=== PATIENT | female | born 1940 | race Caucasian/White ===

== ENCOUNTER 2017-08-14 17:46 | Outpatient (CLI) | payer MEDICARE, BC | END 2017-08-14 17:47 | disposition short-term general hospital (02) | LOC: EMS 17:46 | PROVIDERS: ATTEND Surgery | DX: M25.551 Pain in right hip (principal) | CPT/HCPCS: A0425; A0427 ==

== ENCOUNTER 2022-03-27 11:16 | Emergency (ER) | payer MEDICARE, BC ==
[2022-03-27 11:25] VITALS: BP 123/75
[2022-03-27] MEDS ORDERED: lidocaine 1% 20 ML MDV SUBQ ONE (12:23)
[2022-03-27] MEDS ORDERED: TETANUS/DIPHTHERIA/PERTUSSIS 0.5 ML SYRINGE IM ONE (12:23)
[2022-03-27] MEDS ORDERED: KETOROLAC 30 MG/ML VIAL IM STA (12:25)
--- NOTE | 2022-03-27 12:26 | ED Physician Documentation ---
History of Present Illness - Stated complaint Stated Complaint: GLF/HEAD INJ - Chief complaint Chief Complaint: Trauma Hd/Nk - Additonal information Additional information: 81-year-old female presents emergency department for evaluation of right ear laceration head and neck pain. She was walking in her house this morning while it was still dark she tripped on an edge of the table falling to her right side striking her head on the table. She sustained a laceration through the auricular cartilage of the ear. 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 She is uncertain of her last tetanus. She is denying any slurred speech focal weakness in the arms or legs but does have some pain in the right shoulder without deformity. She is not anticoagulated. Review of Systems Constitutional: denies: Fever, Chills Eyes: reports: Reviewed and negative Ears: reports: Other (Right ear laceration) Nose: reports: Reviewed and negative Throat: reports: Reviewed and negative Cardiac: reports: Reviewed and negative Respiratory: reports: Reviewed and negative GI: reports: Reviewed and negative : reports: Reviewed and negative Musculoskeletal: reports: Neck pain. denies: Back pain PD PAST MEDICAL HISTORY - Past Surgical History Past Surgical History: Yes - Present Medications Home Medications: Ambulatory Orders Medication Instructions Recorded Confirmed Baclofen 10 mg PO DAILY 12/25/13 04/01/15 DULoxetine [Cymbalta] 20 mg PO DAILY 12/25/13 04/01/15 Immune Glob,Ivana Caprylate(IgG) 12/25/13 04/01/15 [Gamunex] Indomethacin 75 mg PO DAILY 12/25/13 04/01/15 Levothyroxine [Synthroid] 88 mg PO DAILY 12/25/13 04/01/15 Methotrexate Sodium [Methotrexate] 12/25/13 04/01/15 Omeprazole [PriLOSEC] 40 mg PO DAILY 12/25/13 04/01/15 Potassium Chloride [K-Dur] 20 meq PO DAILY 12/25/13 04/01/15 Pravastatin Sodium 20 mg PO DAILY 12/25/13 04/01/15 bisacodyL [Dulcolax] 5 mg PO DAILY 12/25/13 04/01/15 predniSONE [Deltasone] 5 mg PO DAILY 12/25/13 04/01/15 cephALEXin [Keflex] 500 mg PO Q6H #20 cap 03/27/22 - Allergies Allergies/Adverse Reactions: Allergies Allergy/AdvReac Type Severity Reaction Status Date / Time Penicillins Allergy Rash Verified 03/27/22 11:25 Sulfa (Sulfonamide Allergy Unknown Verified 03/27/22 11:25 Antibiotics) - Social History Does the pt smoke?: No Smoking Status: Never smoker Does the pt drink ETOH?: No - Immunizations Immunizations are current?: Yes PD ED PE EXPANDED - HEENT HEENT: Head injury, PERRL, EOMI, Other (Mild ptosis of the right eyelid normal at baseline and unchanged.). No: Ears normal (2.5 cm laceration through the right mid auricle of the ear. Bilateral TMs normal. Negative for raccoon eyes, negative garcia sign) - Neck Neck: Supple w/out meningeal sx, Soft tissue TTP (Mild tenderness to the base of the cervical spine. Full range of motion in all planes. No crepitus step-off or deformity. Neurovascular intact motor strength equal bilateral arms elbows and wrists) - Cardiac Cardiac: Regular Rate, Radial strong equal, Pedal strong equal - Respiratory Respiratory: Clear to ausultation denilson. No: Distress, Labored - Extremities Extremities: Right shoulder (Mild tenderness with palpation of the proximal humerus but full range of motion of the shoulder in all planes. No obvious deformity. 2+ radial pulse distally.) - Neuro Neuro: Normal gait, Normal finger nose, Normal speech, Other (mild ptosis of right eye normal at bseline. Otherwise cranial nerves II through XII grossly intact) - GCS Eye Opening: Spontaneous Motor: Obeys Commands Verbal: Oriented Total: 15 Results - Vitals Vitals: Vital Signs - 24 hr 03/27/22 11:19 Temperature 36 C L Heart Rate 71 Respiratory 16 Rate Blood Pressure 123/75 O2 Saturation 97 Oxygen O2 Source Room air - Rads (name of study) right shoulder Radiology: Final report received (No acute osseous abnormality) CT head Radiology: Final report received (No acute intracranial abnormality. No intracranial hemorrhage. Soft tissue gas posterior to the right ear and within the earlobe suggesting lacerations) cervical CT Radiology: Final report received (No acute osseous abnormality. Advanced degenerative changes in cervical spine. Possible right upper lobe airspace opacity. Recommend chest x-ray.) cxr Radiology: Final report received (Minimal hazy opacity in the right upper lobe. Suspect atelectasis.) Procedures - Laceration (location) right auricle ear Length in cm: 2.5 Wound type: Linear, Into muscle, Clean, Exposure of cartilage Anesthesia: Lidocaine 1%, Other (Utilizing right auricular block) Wound preparation: Chlorhexadine, Debrided moderately, Wound explored, debridement of wound edges (traumatic laceration/avulsion), Multiple flaps alig astrid Skin layer closure: Nylon, Interrupted, Size #-0 - enter number (6), Sutures - enter # (7) Other: Patient tolerated well, Dressing applied, Tetanus UTD PD MEDICAL DECISION MAKING - ED course Complexity details: reviewed results, re-evaluated patient, considered differential, d/w patient ED course: 81-year-old female presents to the emergency department for evaluation of closed head injury after tripping on a table leg at home and striking her head on the table. She did have a through and through laceration of the mid auricle on her right ear. This resembled a paper cut. Using navicular block I was able to adequately align the edges and close this wound with 7 sutures. Due to the risk of development of cauliflower ear a generous amount of bacitracin was applied to the wound as well as a very gentle compression bandage that she is advised to remove in 24 hours. I am going to prescribe a 5-day course of cephalexin to help prevent infection empirically as cartilage structures are at higher risk of infection. CT of the head and neck did not show any acute intracranial findings though there is advanced degenerative changes. Radiologist made note of an possible airspace opacity in the right upper lung and then recommended an x-ray of the chest which was completed. The reading was for minimal hazy opacity in the right upper lobe. Suspect for Atelectasis. Given that patient has no recent cough or fevers will defer antibiotics for treatment of unlikely pneumonia. Patient is advised to have the sutures removed in 10 days time. Emergent return precautions were discussed for concerns of worsening symptoms Departure - Departure Disposition: 01 Home, Self Care Clinical Impression: Fall from ground level Laceration of right ear, external Qualifiers: Encounter type: initial encounter Qualified Code(s): S01.311A - Laceration without foreign body of right ear, initial encounter Contusion of right shoulder Qualifiers: Encounter type: initial encounter Qualified Code(s): S40.011A - Contusion of right shoulder, initial encounter Condition: Stable Record reviewed to determine appropriate education?: Yes Prescriptions: cephALEXin [Keflex] 500 mg PO Q6H #20 cap Comments: Char townsend are seen today in the emergency department because you had a ground- level fall at home today where you struck your right shoulder and ear on a table. The x-ray of your shoulder does not show any broken bones. We did do a CT of your head and neck. With the exceptions of arthritis within your neck there was nothing to suggest broken bones or bruising or bleeding within the brain. The CT of the neck however did suggest a possible opacity suggesting pneumonia in the lungs therefore we did an x-ray of the lungs. This mild opacity is seen but is likely atelectasis or incomplete inflation of the air sacs. I recommended that you take big full deep breaths and cough forcefully. If at any point you find that you develop a worrisome cough or have fevers you should return to the ER. You did develop a through and through laceration of the cartilage on your right ear. This was closed with 7 sutures. Ear lacerations can develop infection therefore I have sent a prescription for Keflex to the [facility] in [place]. Fill that this afternoon and begin taking as directed. Tomorrow morning you may remove the bandage from your head. You can gently shower and apply a thin layer of either bacitracin or Polytrim to the laceration. The sutures should be removed in 10 days. This can be done at any urgent care, primary care office or on a return visit to the ER. If at any point you find that you are developing fevers, having mid milky drainage significant redness more than you would expect of the ear or have any concerns of infection please return immediately to the ER.
--- NOTE | 2022-03-27 13:02 | CT Report ---
PROCEDURE: CERVICAL SPINE WO INDICATIONS: glf; neck pain TECHNIQUE: Noncontrast 3 mm thick sections acquired from the skull base to the T4 level. Sagittal and coronal r eformats were then constructed. For radiation dose reduction, the following was used: automated exp osure control, adjustment of mA and/or kV according to patient size. COMPARISON: None. FINDINGS: Image quality: Excellent. Bones: No fractures or dislocations. Mild kyphosis. Extensive degenerative change in the cervical sp ine. There is 0.4 cm anterolisthesis of C3 on C4. Visualized superior ribs are intact. Soft tissues: Prevertebral soft tissues are normal in thickness. No paravertebral hematomas. No ap ical pneumothoraces. Possible airspace opacity at the right midlung field partially visualized. Altho ugh this appears more bandlike on the plug drill operator image. IMPRESSION: No acute osseous abnormality. Advanced degenerative change in the cervical spine. Possible right upper lobe airspace opacity. Recommend chest x-ray. Reviewed by: Khadar Andujar MD on 03/27/2022 12:00 PM DL Approved by: Khadar Andujar MD on 03/27/2022 12:00 PM DL Station ID: [id number]
--- NOTE | 2022-03-27 13:05 | CT Report ---
PROCEDURE: HEAD WO INDICATIONS: Ground-level fall, right ear trauma TECHNIQUE: Noncontrast 4.5 mm thick angled axial sections acquired from the foramen magnum to the vertex. For r adiation dose reduction, the following was used: automated exposure control, adjustment of mA and/or kV according to patient size. COMPARISON: None. FINDINGS: Image quality: Excellent. CSF spaces: Basal cisterns are patent. No extra-axial fluid collections. Ventricles are normal in size and shape. Brain: No midline shift. No intracranial masses or hemorrhage. No area of hypodensity in a vascular distribution to suggest acute infarction. There is periventricular hypodensity consistent with chron ic microvascular ischemic disease. Age-related parenchymal loss. Skull and face: Calvarium and visualized facial bones are intact, without suspicious lesions. Gas at the right year and posterior to the air within the soft tissues. No large hematoma. Sinuses: Visualized sinuses and mastoids are clear. IMPRESSION: No acute intracranial abnormality. No intracranial hemorrhage. Soft tissue gas posterior to the right ear and within the ear lobe suggesting lacerations. Reviewed by: Khadar Andujar MD on 03/27/2022 12:03 PM DL Approved by: Khadar Andujar MD on 03/27/2022 12:03 PM DL Station ID: [id number]
--- NOTE | 2022-03-27 13:08 | XRAY Report ---
PROCEDURE: Shoulder 3 View RT INDICATIONS: pain after fall TECHNIQUE: 3 views of the shoulder were acquired. COMPARISON: None. FINDINGS: Bones: No fractures or dislocations. Degenerative hypertrophy at the AC joint. Degenerative change a t the glenohumeral joint. Moderate degenerative change overall. No suspicious bony lesions. Visuali zed ribs appear intact. Soft tissues: No suspicious soft tissue calcifications. IMPRESSION: No acute osseous abnormality. Reviewed by: Khadar Andujar MD on 03/27/2022 12:07 PM DL Approved by: Khadar Andujar MD on 03/27/2022 12:07 PM DL Station ID: [id number]
--- NOTE | 2022-03-27 14:05 | XRAY Report ---
PROCEDURE: Chest 1 View X-Ray INDICATIONS: ? RUL opacity seen on CT TECHNIQUE: One view of the chest was acquired. COMPARISON: Lung apices on CT cervical spine earlier today. FINDINGS: Surgical changes and devices: Thoracolumbar spine hardware. Lungs and pleura: No pleural effusions or pneumothorax. Minimal hazy opacity in the right midlung fi eld. No consolidative opacity. Mediastinum: Mediastinal contours appear normal. Heart size is within normal limits. Bones and chest wall: No suspicious bony lesions. Overlying soft tissues appear unremarkable. IMPRESSION: Minimal hazy opacity in the right upper lobe. Suspect atelectasis. Reviewed by: Khadar Andujar MD on 03/27/2022 1:04 PM DL Approved by: Khadar Andujar MD on 03/27/2022 1:04 PM DL Station ID: [id number]
== END 2022-03-27 14:24 | disposition home or self-care (01) ==
LOC: ED 11:16
DX: S01.311A Laceration without foreign body of right ear, initial encounter (principal); S40.011A Contusion of right shoulder, initial encounter; W01.190A Fall on same level from slipping, tripping and stumbling with subsequent striking against furniture, initial encounter; Y93.01 Activity, walking, marching and hiking; Y92.009 Unspecified place in unspecified non-institutional (private) residence as the place of occurrence of the external cause; R91.8 Other nonspecific abnormal finding of lung field
CPT/HCPCS: 12051; 90471; 99283

== ENCOUNTER 2022-04-07 09:00 | Emergency (ER) | payer MEDICARE, BC ==
[2022-04-07 09:32] VITALS: BP 135/68
--- NOTE | 2022-04-07 09:59 | ED Physician Documentation ---
PD HPI WOUND RECHECK - Stated complaint Stated Complaint: STITCHES REMOVAL - Chief complaint Chief Complaint: Laceration - Histroy obtained from History obtained from: Patient - Additional information Additional information: Patient is an 81-year-old female presenting for evaluation of suture removal. Patient was seen on March 27 after a injury to her right ear and had 7 stitches placed. Patient denies any concerns for infection. Review of Systems Constitutional: denies: Fever Cardiac: denies: Chest pain / pressure Respiratory: denies: Dyspnea GI: denies: Abdominal Pain Skin: reports: Laceration (s) Neurologic: denies: Headache PD PAST MEDICAL HISTORY - Past Surgical History Past Surgical History: Yes - Present Medications Home Medications: Ambulatory Orders Medication Instructions Recorded Confirmed Baclofen 10 mg PO DAILY 12/25/13 04/01/15 DULoxetine [Cymbalta] 20 mg PO DAILY 12/25/13 04/01/15 Immune Glob,Ivana Caprylate(IgG) 12/25/13 04/01/15 [Gamunex] Indomethacin 75 mg PO DAILY 12/25/13 04/01/15 Levothyroxine [Synthroid] 88 mg PO DAILY 12/25/13 04/01/15 Methotrexate Sodium [Methotrexate] 12/25/13 04/01/15 Omeprazole [PriLOSEC] 40 mg PO DAILY 12/25/13 04/01/15 Potassium Chloride [K-Dur] 20 meq PO DAILY 12/25/13 04/01/15 Pravastatin Sodium 20 mg PO DAILY 12/25/13 04/01/15 bisacodyL [Dulcolax] 5 mg PO DAILY 12/25/13 04/01/15 predniSONE [Deltasone] 5 mg PO DAILY 12/25/13 04/01/15 cephALEXin [Keflex] 500 mg PO Q6H #20 cap 03/27/22 - Allergies Allergies/Adverse Reactions: Allergies Allergy/AdvReac Type Severity Reaction Status Date / Time Penicillins Allergy Rash Verified 04/07/22 09:32 Sulfa (Sulfonamide Allergy Unknown Verified 04/07/22 09:32 Antibiotics) - Social History Does the pt smoke?: No Smoking Status: Never smoker Does the pt drink ETOH?: No - Immunizations Immunizations are current?: Yes PD ED PE NORMAL - General General: Alert and oriented X 3, No acute distress, Well developed/nourished - HEENT HEENT: Other (Well-healing laceration to right ear with no evidence of dehiscence or infection) - Respiratory Respiratory: No respiratory distress - Derm Derm: Warm and dry Results - Vitals Vitals: Vital Signs - 24 hr 04/07/22 09:30 Temperature 36.7 C Heart Rate 80 Respiratory 16 Rate Blood Pressure 135/68 H O2 Saturation 99 Oxygen O2 Source Room air PD MEDICAL DECISION MAKING - ED course ED course: Patient presenting for suture removal for wound that was repaired on March 27 with 7 stitches to right ear. Wound is well-appearing with no signs of dehiscence or infection. 7 stitches were removed in their entirety. Patient was counseled on continued wound care. Departure - Departure Disposition: 01 Home, Self Care Clinical Impression: Visit for suture removal Condition: Stable Instructions: ED Wound Check Sutr Remove No Infec Comments: Your Stitches were all removed and your wound appears to be healing well. You can use bacitracin On the wound as it heals Or just make sure to keep it clean and dry. If you have any concerns for infection please return to the ER. Discharge Date/Time: 04/07/22 10:09
== END 2022-04-07 10:09 | disposition home or self-care (01) ==
LOC: ED 09:00
DX: S01.311D Laceration without foreign body of right ear, subsequent encounter (principal); X58.XXXD Exposure to other specified factors, subsequent encounter
CPT/HCPCS: 99281

== ENCOUNTER 2023-11-29 10:47 | Emergency (ER) | payer BC, MEDICARE ==
--- NOTE | 2023-11-29 12:35 | XRAY Report ---
PROCEDURE: Shoulder 2+V RT INDICATIONS: R shoulder pain TECHNIQUE: 3 views of the shoulder were acquired. COMPARISON: 03/27/2022. FINDINGS: Bones: No fractures or dislocations. No suspicious bony lesions. Significant interval progression o f degenerative change, with severe glenohumeral joint degenerative arthritis. There is large osteophy te and severe joint space loss. Visualized ribs appear intact. Soft tissues: No suspicious soft tissue calcifications. The visualized lungs are within normal limi ts. 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 Reviewed by: Cheng Chowdhury MD on 11/29/2023 12:33 PM PDT Approved by: Cheng Chowdhury MD on 11/29/2023 12:33 PM PDT Station ID: [id number]
--- NOTE | 2023-11-29 12:48 | ED Physician Documentation ---
History of Present Illness - Stated complaint Stated Complaint: RT ARM PX RT HAND NUMBNESS - Chief complaint Chief Complaint: Ext Problem - History obtained from History obtained from: Patient - History of Present Illness Timing: Yesterday Pain level max: 8 Pain level now: 8 - Additonal information Additional information: 82-year-old female presents to the emergency department complaining of right wrist pain. She states that her right shoulder has been hurting as well, but this is chronic. She states over the last 2 days she has noted swelling and pain to the right hand and wrist. 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 She states that she does not recall any spe cific injury but noted the hand is more swollen than usual. No fevers. No chills. Worse with movement, better with rest. She states that she was unable to courtroom deputy the steering wheel today so a friend drove her to the emergency department. She states that she is on medications for arthritis at home but does not know what they are. She states that she is on prednisone. The pain is worse with movement, better with rest. Review of Systems Constitutional: denies: Fever, Chills Respiratory: denies: Cough GI: denies: Nausea, Vomiting, Diarrhea Skin: denies: Rash Musculoskeletal: denies: Neck pain, Back pain Neurologic: denies: Headache PD PAST MEDICAL HISTORY - Past Medical History Past Medical History: Yes Other Past Medical History: Stiff person syndrome - Past Surgical History Past Surgical History: Yes - Present Medications Home Medications: Ambulatory Orders Medication Instructions Recorded Confirmed Baclofen 10 mg PO DAILY 12/25/13 04/01/15 DULoxetine [Cymbalta] 20 mg PO DAILY 12/25/13 04/01/15 Immune Glob,Ivana Caprylate(IgG) 12/25/13 04/01/15 [Gamunex] Indomethacin 75 mg PO DAILY 12/25/13 04/01/15 Levothyroxine [Synthroid] 88 mg PO DAILY 12/25/13 04/01/15 Methotrexate Sodium [Methotrexate] 12/25/13 04/01/15 Omeprazole [PriLOSEC] 40 mg PO DAILY 12/25/13 04/01/15 Potassium Chloride [K-Dur] 20 meq PO DAILY 12/25/13 04/01/15 Pravastatin Sodium 20 mg PO DAILY 12/25/13 04/01/15 bisacodyL [Dulcolax] 5 mg PO DAILY 12/25/13 04/01/15 predniSONE [Deltasone] 5 mg PO DAILY 12/25/13 04/01/15 cephALEXin [Keflex] 500 mg PO Q6H #20 cap 03/27/22 HYDROcod/ACETAM 5/325 [[place] 5/325] 1 ea PO Q6H PRN #14 tablet 11/29/23 predniSONE [Deltasone] 20 mg PO DAILY #5 tablet 11/29/23 - Allergies Allergies/Adverse Reactions: Allergies Allergy/AdvReac Type Severity Reaction Status Date / Time Penicillins Allergy Rash Verified 11/29/23 10:51 Sulfa (Sulfonamide Allergy Unknown Verified 11/29/23 10:51 Antibiotics) - Social History Does the pt smoke?: No Smoking Status: Never smoker Does the pt drink ETOH?: No Does the pt have substance abuse?: No - Immunizations Immunizations are current?: Yes PD ED PE NORMAL - Vitals Vital signs reviewed: Yes - General General: Alert and oriented X 3, No acute distress - HEENT HEENT: Moist mucous membranes - Neck Neck: Supple, no meningeal sign - Cardiac Cardiac: RRR, Strong equal pulses - Respiratory Respiratory: No respiratory distress, Clear bilaterally - Derm Derm: Warm and dry - Extremities Extremities: Other - Neuro Neuro: Alert and oriented X 3 - Free text exam Free text exam: Limited range of motion of the right shoulder secondary to pain. No warmth or swelling. There is warmth and swelling to the right wrist and to the dorsum of the right hand. No palmar tenderness. No streaking. No erythema. Rings were removed from the right hand. Limited range of motion of the right wrist secondary to pain, full range of motion of the fingers. Neurovascular intact. Results - Vitals Vitals: Vital Signs - 24 hr 11/29/23 11/29/23 10:51 14:04 Temperature 36.7 C 36.7 C Heart Rate 66 97 Respiratory 16 18 Rate Blood Pressure 155/63 H 124/81 H O2 Saturation 99 98 Oxygen O2 Source Room air - Rads (name of study) R shoulder xray Relevant Findings:: Final report received, See rad report R wrist xray Relevant Findings:: Final report received, See rad report PD Medical Decision Making - ED course Complexity details: reviewed results, re-evaluated patient, considered differential, d/w patient ED course: Patient with what appears to be severe osteoarthritis of the right shoulder and right hand/wrist. Symptoms are consistent with an osteoarthritis flare. Placed in a Velcro splint for comfort of the right wrist. She feels better. Will place on pain medication and a short course of steroids for home. She is usually on 5 mg of prednisone daily, we will increase this to 20 mg daily. No evidence of infection. No evidence of cellulitis. No evidence of joint infection. No history of gout. No trauma. No fractures or dislocations. Neurovascular intact. Patient counseled regarding signs and symptoms for which I believe and urgent re-evaluation would be necessary. Patient with good understanding of and agreement to plan and is comfortable going home at this time This document was made in part using voice recognition software. While efforts are made to proofread this document, sound alike and grammatical errors may occur. Departure - Departure Disposition: 01 Home, Self Care Clinical Impression: Osteoarthritis Qualifiers: Osteoarthritis location: unspecified site Osteoarthritis type: unspecified Qualified Code(s): M19.90 - Unspecified osteoarthritis, unspecified site Condition: Good Instructions: ED Degenerative Joint Disease Follow-Up: Khadar Cortez MD [Primary Care Provider] - Within 1 week Prescriptions: predniSONE [Deltasone] 20 mg PO DAILY #5 tablet HYDROcod/ACETAM 5/325 [[place] 5/325] 1 ea PO Q6H PRN #14 tablet PRN Reason: Pain Comments: You appear to be having an arthritis flare. We have prescribed pain medication for you for the next few days. The steroid should help to decrease the inflammation. Wear the splint as needed for comfort, this should help decrease the swelling. You can use ice as well. Please follow-up with your doctor for further care and return if you worsen. There is no acute bony abnormality on y our x-rays. Your prescription was sent to the [facility] pharmacy. I am prescribing a short course of narcotic pain medication for you. These are potentially dangerous and addictive medications that should be used carefully. These medications may constipate you. Take an [id number] stool softener (docusate) twice daily with plenty of water while taking these medications. If you go 24 hours without a bowel movement, take [id number] miralax, per package instructions. Do not drink or drive while taking these medications. If you received narcotic or sedating medications while in the emergency department, do not drive for 24 hours. Store this medication in a safe, secure place and out of reach of children. It is a violation of federal law to give or sell this medication to another person or to use in a manner other than prescribed. The ED will not refill narcotic prescriptions, including prescriptions lost or stolen. To dispose of unwanted medications: 1. [facility] [address] in [place] has a medication drop box. They accept prescription medications (in pill form) Monday through Monday 9:00 a.m. to 5:00 p.m. 2. The [facility] accepts prescription medications (in pill form only) for disposal year round. Call for more information. 3. Contact the [facility] for the next [facility] sponsored prescription drug collection event. , [phone], or [phone]; Forms: PCP List Discharge Date/Time: 11/29/23 14:04
[2023-11-29] MEDS: predniSONE 20 MG TABLET PO STA (12:55)
[2023-11-29] MEDS: HYDROcod/ACETAM 5/325 MG TABLET PO STA (12:55)
--- NOTE | 2023-11-29 12:55 | XRAY Report ---
PROCEDURE: Wrist 3+V RT INDICATIONS: R wrist pain/swelling TECHNIQUE: 4 views of the wrist were acquired. COMPARISON: None. FINDINGS: Bones: No fractures or dislocations. Advanced degenerative arthritis of the base of the thumb. There is some radiocarpal joint degenerative arthritis as well. There is advanced thumb IP joint degenerat inga arthritis. No suspicious bony lesions. Soft tissues: No suspicious soft tissue calcifications or masses. IMPRESSION: Multifocal degenerative arthritis, advanced at the base of the thumb and the first IP joint. There is also radiocarpal joint degenerative arthritis. No acute bony abnormality. Reviewed by: Cheng Chowdhury MD on 11/29/2023 12:54 PM PDT Approved by: Cheng Chowdhury MD on 11/29/2023 12:54 PM PDT Station ID: [id number]
[2023-11-29 14:07] VITALS: BP 124/81; O2SAT 98
== END 2023-11-29 14:04 | disposition home or self-care (01) ==
LOC: ED 10:47
DX: M19.011 Primary osteoarthritis, right shoulder (principal); M19.031 Primary osteoarthritis, right wrist; M19.041 Primary osteoarthritis, right hand
CPT/HCPCS: 73030; 73110; 99283; A9270; J7512

== ENCOUNTER 2023-12-19 08:00 | Outpatient (CLI) | payer MEDICARE ==
--- NOTE | 2023-12-20 22:06 | XRAY Report ---
PROCEDURE: Hand 3+V RT INDICATIONS: JOINT PAIN RIGHT HAND TECHNIQUE: 3 views of the hand(s) acquired. COMPARISON: X-ray wrist 11/29/2023 FINDINGS: Bones: No fractures or dislocations. No suspicious bony lesions. Unchanged appearance of moderate to severe arthritic changes including IP and first CMC degenerative narrowing. Periarticular osteoph ytes and subchondral sclerosis are present. Areas of subchondral lucency are present. Soft tissues: No suspicious soft tissue calcifications or masses. IMPRESSION: Prominent arthritic changes as above. Subchondral lucencies may represent cysts or an appropriate cli nical laboratory circumstances, erosions. Reviewed by: Cesia Rocha MD on 12/20/2023 10:05 PM PDT Approved by: Cesia Rocha MD on 12/20/2023 10:05 PM PDT Station ID: [id number]
--- NOTE | 2023-12-20 22:07 | XRAY Report ---
PROCEDURE: Wrist 3+V RT INDICATIONS: PAIN IN RIGHT WRIST TECHNIQUE: 3 views of the wrist were acquired. COMPARISON: X-ray hand 12/19/2023, x-ray wrist 11/29/2023 FINDINGS: Bones: No fractures or dislocations. No suspicious bony lesions. Prominent first CMC degenerative narrowing with subchondral sclerosis and periarticular osteophytes. Chondrocalcinosis is present. Soft tissues: No suspicious soft tissue calcifications or masses. IMPRESSION: No visualized acute fracture or dislocation. However, occult injury cannot be excluded. Recommend shena rt interval imaging follow-up in 7-10 days as clinically indicated for additional evaluation. Stable appearance of arthritic change. Reviewed by: Cesia Rocha MD on 12/20/2023 10:06 PM PDT Approved by: Cesia Rocha MD on 12/20/2023 10:06 PM PDT Station ID: [id number]
== END 2023-12-19 23:59 | disposition home or self-care (01) ==
LOC: DI.S 08:00
PROVIDERS: ATTEND Registered Nurse
DX: M25.531 Pain in right wrist (principal); M19.041 Primary osteoarthritis, right hand; M18.11 Unilateral primary osteoarthritis of first carpometacarpal joint, right hand

== ENCOUNTER 2023-12-25 17:42 | Outpatient (CLI) | payer MEDICARE ==
--- NOTE | 2023-12-25 21:07 | XRAY Report ---
PROCEDURE: Wrist 3+V RT INDICATIONS: DISPLACED FRACTURE OF TRIQUETRUM BONE, RT WRIST TECHNIQUE: 3 views of the wrist were acquired. COMPARISON: X-ray wrist/hand 12/19/2023.. FINDINGS: Bones: Calcifications are noted posterior to the triquetral.. No suspicious bony lesions. Promine nt first CMC arthritic change. Chondrocalcinosis is present. Soft tissues: No suspicious soft tissue calcifications or masses. IMPRESSION: Calcifications posterior to the triquetral bone. This could represent avulsion fractures versus promi nence of chondrocalcinosis. Reviewed by: Cesia Rocha MD on 12/25/2023 9:06 PM PDT Approved by: Cesia Rocha MD on 12/25/2023 9:06 PM PDT Station ID: [id number]
== END 2023-12-25 17:43 | disposition home or self-care (01) ==
LOC: DI.S 17:42
PROVIDERS: ATTEND Orthopaedic Surgery
DX: S62.111A Displaced fracture of triquetrum [cuneiform] bone, right wrist, initial encounter for closed fracture (principal)

== ENCOUNTER 2024-01-23 17:13 | Outpatient (CLI) | payer MEDICARE ==
--- NOTE | 2024-01-24 09:18 | XRAY Report ---
PROCEDURE: Wrist 3+V RT INDICATIONS: FRACTURE OF RT RADIUS TECHNIQUE: 3 views of the wrist were acquired. COMPARISON: 12/25/2023, 12/19/2023, 11/29/2023. FINDINGS: Bones: Again noted are ill-defined calcifications involving dorsal aspect of carpal bones, which may represent age-indeterminate and injury involving dorsal aspect of triquetrum. No definite distal rad ial fracture is seen. Osteoarthritic changes are noted throughout wrist joints unchanged from prior s tudy and is most notably at first CMC joint. Widening of scapholunate interval concerning for rupture d scapholunate ligament. No suspicious bony lesions. Soft tissues: Chondrocalcinosis in the region of radiocarpal and ulnar carpal joint is seen. IMPRESSION: No definite displaced distal radial fracture is seen. Suggestion of age-indeterminate fracture involv ing dorsal aspect of triquetrum with amorphous calcifications less well seen on the current study due to overlying cast placement. Osteoarthritis throughout wrist joints. Widening of scapholunate interval. Reviewed by: Rylan Lopez MD on 01/24/2024 9:17 AM PDT Approved by: Rylan Lopez MD on 01/24/2024 9:17 AM PDT Station ID: [id number]
== END 2024-01-23 17:14 | disposition home or self-care (01) ==
LOC: DI.S 17:13
PROVIDERS: ATTEND Orthopaedic Surgery
DX: S52.531A Colles' fracture of right radius, initial encounter for closed fracture (principal); M19.031 Primary osteoarthritis, right wrist

== ENCOUNTER 2024-08-12 18:13 | Observation (INO) ==
[2024-08-12 19:02] LABS: BASOPHILS # (AUTO) 0.1 10^3/uL (0.0-0.1); BASOPHILS % (AUTO) 0.7 %; EOSINOPHILS % (AUTO) 0.6 %; HCT - HEMATOCRIT 39.1 % (37.0-47.0); HGB - HEMOGLOBIN 12.3 g/dL (12.0-16.0); LYMPHOCYTES # (AUTO) 0.8 10^3/uL (1.5-3.5); LYMPHOCYTES % (AUTO) 11.8 %; MEAN CORPUSCULAR HEMOGLOBIN 27.3 pg (27.0-31.0); MEAN CORPUSCULAR HGB CONC 31.5 g/dL (32.0-36.0); MEAN CORPUSCULAR VOLUME 86.7 fL (81.0-99.0); MEAN PLATELET VOLUME 10.4 fL (7.9-10.8); MONOCYTES # (AUTO) 0.5 10^3/uL (0.0-1.0); NEUTROPHILS # (AUTO) 5.6 10^3/uL (1.5-6.6); NEUTROPHILS % (AUTO) 79.5 %; PLT - PLATELET COUNT 202 10^3/uL (130-450); RED BLOOD COUNT 4.51 10^6/uL (4.20-5.40); RED CELL DISTRIBUTION WIDTH 14.6 % (12.0-15.0)
[2024-08-12 19:08] LABS: INR 1.1 (0.8-1.2); PT - PROTHROMBIN TIME 11.9 secs (9.9-12.6)
[2024-08-12 19:32] LABS: ALBUMIN 3.8 g/dL (3.2-5.5); ALBUMIN/GLOBULIN RATIO 1.2 (1.0-2.2); ALKALINE PHOSPHATASE 40 IU/L (42-121); ALT ALANINE AMINOTRANSFERASE 15 IU/L (10-60); AST ASPARTATE AMINOTRANSFERASE 25 IU/L (10-42); BILIRUBIN,TOTAL 0.4 mg/dL (0.2-1.0); BUN - BLOOD UREA NITROGEN 21 mg/dL (6-20); CALCIUM 9.4 mg/dL (8.5-10.3); CARBON DIOXIDE - CO2 26 mmol/L (21-32); CHLORIDE 108 mmol/L (101-111); CREATININE 0.9 mg/dL (0.6-1.3); ETOH - ETHANOL < 10.0 mg/dL; GFR - MDRD 60 (>89); GLUCOSE 102 mg/dL (74-104); MAGNESIUM 1.8 mg/dL (1.7-2.3); POTASSIUM 3.9 mmol/L (3.5-4.5); SODIUM 140 mmol/L (135-145); TOTAL PROTEIN 6.9 g/dL (6.4-8.9)
--- NOTE | 2024-08-12 19:33 | CT Report ---
PROCEDURE: CT Head WO INDICATIONS: head injury, ams TECHNIQUE: Noncontrast 4.5 mm thick angled axial sections acquired from the foramen magnum to the vertex. For r adiation dose reduction, the following was used: automated exposure control, adjustment of mA and/or kV according to patient size. COMPARISON: 03/27/2022. FINDINGS: Image quality: Excellent. CSF spaces: Basal cisterns are patent. No extra-axial fluid collections. Ventricles are normal in size and shape. Brain: No midline shift. No intracranial masses or hemorrhage. Flores-white matter interface is norm al. Age-related global volume loss and chronic microvascular ischemic changes. Intracranial atherosc lerotic vascular calcifications. Skull and face: Calvarium and visualized facial bones are intact, without suspicious lesions. Sinuses: Visualized sinuses and mastoids are clear. IMPRESSION: No acute intracranial pathology. Reviewed by: Tony Diaz MD on 08/12/2024 7:32 PM PDT Approved by: Tony Diaz MD on 08/12/2024 7:32 PM PDT Station ID: [id number]
--- NOTE | 2024-08-12 19:41 | ED Physician Documentation ---
History of Present Illness Stated complaint Stated Complaint: FATIGUE/CONFUSED Chief complaint Chief Complaint: Neuro History obtained from History obtained from: Patient and Family (Mother) History of Present Illness Timing: Prior to arrival Additonal information Additional information: Patient 83-year-old female presenting to the emergency department with altered mental status and confusion with generalized fatigue. Patient presents with mother who is ANO x 2 on arrival patient is answering questions inappropriately according to daughter. Patient usually lives alone and can carry out activities of daily living without assistance however daughter comes up on weekends to help her mother out. This weekend she notes around 930 last night she began to bec ome more confused she notes it progressively worsened throughout the day. Patient has a history of temporal arteritis but no history of Meds/Allgy Home Medications Ambulatory Orders Medication Instructions Recorded Confirmed baclofen 10 mg tablet 10 mg PO DAILY 12/25/13 08/03/24 duloxetine 20 mg capsule,delayed 20 mg PO DAILY 12/25/13 08/03/24 release immune globulin(hum),capr(IgG) 10 12/25/13 08/03/24 % intravenous solution (Gamunex) indomethacin 75 mg 75 mg PO DAILY 12/25/13 08/03/24 capsule,extended release levothyroxine 88 mcg tablet 88 mg PO DAILY 12/25/13 08/03/24 methotrexate sodium 25 mg/mL 12/25/13 08/03/24 injection solution omeprazole 20 mg capsule,delayed 40 mg PO DAILY 12/25/13 08/03/24 release potassium chloride 20 mEq 20 meq PO DAILY 12/25/13 08/03/24 tablet,extended release(part/cryst) (Klor-Con M) pravastatin 20 mg tablet 20 mg PO DAILY 12/25/13 08/03/24 prednisone 5 mg tablet 4 mg PO DAILY 12/25/13 08/03/24 Multi vitamin 04/18/24 08/03/24 aspirin 81 mg tablet,delayed 81 mg PO DAILY 04/18/24 08/03/24 release (Adult Aspirin Regimen) cholecalciferol (vitamin D3) 25 25 mcg PO DAILY 04/18/24 08/03/24 mcg (1,000 unit) chewable tablet (Vitamin D3) magnesium 100 mg capsule 100 mg PO DAILY 04/18/24 08/03/24 magnesium 200 mg tablet 400 mg PO DAILY 04/18/24 08/03/24 Allergies Allergies Allergy/AdvReac Type Severity Reaction Status Date / Time Penicillins Allergy Rash Verified 08/12/24 18:23 Sulfa (Sulfonamide Allergy Unknown Verified 08/12/24 18:23 Antibiotics) PFSH Active Problems All Active Problems (Updated 08/12/24 @ 22:35 by Krystina Caldwell PA-C) Altered mental status (Acute) UTI (urinary tract infection) (Acute) Nausea (Acute) Dizziness (Acute) Neck pain (Acute) Fall (Acute) Head injury (Acute) 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 (Date/Year): 1969 How many cigarettes a day do you smoke? (20 cigarettes=1 Pk): 10 Do you dip or chew tobacco?: No Do you vape?: No Living arrangement: At home Living Condition: Alone Support Person: Yes Relationship: Child Physical Activity: Walking Level: Independent Do you feel safe in your home environment?: Yes Suffered physical, verbal, emotional, or financial abuse?: No History of Abuse: No Frequency: Occasional Substance Use: denies use Exam Constitutional Patient appears fatigued GCS 13 on arrival Results Vitals Vitals: Vital Signs - 24 hr 08/12/24 18:25 08/12/24 20:44 08/12/24 22:04 Temperature 36.8 C Temperature Source Oral Pulse Rate 60 60 71 Respiratory Rate 18 17 78 H Blood Pressure 175/103 H 175/105 H 163/99 H O2 Saturation 99 98 100 O2 Source Room air Room air Room air Pain Intensity 2 3 7 08/12/24 22:33 Temperature Temperature Source Pulse Rate Respiratory Rate Blood Pressure O2 Saturation O2 Source Pain Intensity 5 Oxygen O2 Source Room air Labs Labs: Laboratory Tests 08/12/24 08/12/24 08/12/24 18:56 20:02 20:15 WBC 7.0 RBC 4.51 Hgb 12.3 Hct 39.1 MCV 86.7 MCH 27.3 MCHC 31.5 L RDW 14.6 Plt Count 202 MPV 10.4 Neut # (Auto) 5.6 Lymph # (Auto) 0.8 L Butler # (Auto) 0.5 Eos # (Auto) 0.0 Baso # (Auto) 0.1 Absolute Nucleated RBC 0.00 Nucleated RBC % 0.0 PT 11.9 INR 1.1 VBG Total Hgb 12.9 VBG Oxyhemoglobin 45 L VBG Carboxyhemoglobin 1.5 VBG Methemoglobin 0.3 Sodium 140 Potassium 3.9 Chloride 108 Carbon Dioxide 26 Anion Gap 6.0 BUN 21 H Creatinine 0.9 Estimated GFR (MDRD) 60 L Glucose 102 Lactic Acid 0.8 Calcium 9.4 Magnesium 1.8 Total Bilirubin 0.4 AST 25 ALT 15 Alkaline Phosphatase 40 L Troponin I High Sens 8.1 Total Protein 6.9 Albumin 3.8 Globulin 3.1 Albumin/Globulin Ratio 1.2 Urine Color Urine Clarity Urine pH Ur Specific [place] Urine Protein Urine Glucose (UA) Urine Ketones Urine Occult Blood Urine Nitrite Urine Bilirubin Urine Urobilinogen Ur Leukocyte Esterase Urine RBC Urine WBC Ur Squamous Epith Cells Urine Bacteria Ur Microscopic Review Urine Culture Comments Nasal Adenovirus (PCR) NOT DETECTED Nasal B. parapertussis DNA (PCR) NOT DETECTED Nasal Coronavir 229E PCR NOT DETECTED Nasal Coronavir HKU1 PCR NOT DETECTED Nasal Coronavir NL63 PCR NOT DETECTED Nasal Coronavir OC43 PCR NOT DETECTED Nasal Enterovir/Rhinovir PCR NOT DETECTED Nasal Influenza B PCR NOT DETECTED Nasal Influenza A PCR NOT DETECTED Nasal Parainfluen 1 PCR NOT DETECTED Nasal Parainfluen 2 PCR NOT DETECTED Nasal Parainfluen 3 PCR NOT DETECTED Nasal Parainfluen 4 PCR NOT DETECTED Nasal RSV (PCR) NOT DETECTED Nasal B.pertussis DNA PCR NOT DETECTED Nasal C.pneumoniae (PCR) NOT DETECTED Carlo Human Metapneumo PCR NOT DETECTED Nasal M.pneumoniae (PCR) NOT DETECTED Nasal SARS-CoV-2 (PCR) NOT DETECTED Salicylates < 1.5 Urine Opiates Screen Ur Buprenorphine Scrn Ur Oxycodone Screen Urine Methadone Screen Acetaminophen 0.2 Ur Barbiturates Screen Ur Tricyclics Screen Ur Phencyclidine Scrn Ur Amphetamine Screen U Methamphetamines Scrn U Benzodiazepines Scrn Urine Cocaine Screen U Cannabinoids Screen Ur Drug Screen Comment Ethyl Alcohol < 10.0 08/12/24 20:27 WBC RBC Hgb Hct MCV MCH MCHC RDW Plt Count MPV Neut # (Auto) Lymph # (Auto) Butler # (Auto) Eos # (Auto) Baso # (Auto) Absolute Nucleated RBC Nucleated RBC % PT INR VBG Total Hgb VBG Oxyhemoglobin VBG Carboxyhemoglobin VBG Methemoglobin Sodium Potassium Chloride Carbon Dioxide Anion Gap BUN Creatinine Estimated GFR (MDRD) Glucose Lactic Acid Calcium Magnesium Total Bilirubin AST ALT Alkaline Phosphatase Troponin I High Sens Total Protein Albumin Globulin Albumin/Globulin Ratio Urine Color YELLOW Urine Clarity SL. CLOUDY Urine pH 5.5 Ur Specific [place] 1.025 Urine Protein TRACE Urine Glucose (UA) NEGATIVE Urine Ketones TRACE Urine Occult Blood TRACE-INTA Urine Nitrite POSITIVE H Urine Bilirubin NEGATIVE Urine Urobilinogen 0.2 (NORMAL) Ur Leukocyte Esterase NEGATIVE Urine RBC 0-5 Urine WBC 4-5 Ur Squamous Epith Cells RARE Squamous Urine Bacteria Many H Ur Microscopic Review INDICATED Urine Culture Comments INDICATED Nasal Adenovirus (PCR) Nasal B. parapertussis DNA (PCR) Nasal Coronavir 229E PCR Nasal Coronavir HKU1 PCR Nasal Coronavir NL63 PCR Nasal Coronavir OC43 PCR Nasal Enterovir/Rhinovir PCR Nasal Influenza B PCR Nasal Influenza A PCR Nasal Parainfluen 1 PCR Nasal Parainfluen 2 PCR Nasal Parainfluen 3 PCR Nasal Parainfluen 4 PCR Nasal RSV (PCR) Nasal B.pertussis DNA PCR Nasal C.pneumoniae (PCR) Carlo Human Metapneumo PCR Nasal M.pneumoniae (PCR) Nasal SARS-CoV-2 (PCR) Salicylates Urine Opiates Screen NEGATIVE Ur Buprenorphine Scrn NEGATIVE Ur Oxycodone Screen NEGATIVE Urine Methadone Screen NEGATIVE Acetaminophen Ur Barbiturates Screen NEGATIVE Ur Tricyclics Screen NEGATIVE Ur Phencyclidine Scrn NEGATIVE Ur Amphetamine Screen NEGATIVE U Methamphetamines Scrn NEGATIVE U Benzodiazepines Scrn NEGATIVE Urine Cocaine Screen NEGATIVE U Cannabinoids Screen NEGATIVE Ur Drug Screen Comment CUTOFF CONC BELOW: Ethyl Alcohol PD Medical Decision Making ED course Complexity details: reviewed old records and reviewed results ED course: Patient 83-year-old female brought in by daughter for persistent fatigue confusion symptoms started last evening around 9 or 10:00 patient woke up this morning increased fatigue confused answering questions inappropriately. This is not normal according to patient's daughter she has no history of stroke but does have history of temporal arteritis. She has been treated with prednisone but they have been tapering the dose down. Today patient was sleeping majority of the day no acute complaints other than head pain at this time. Daughter reports no recent falls. Vitals here in the ED are reassuring she is nontachycardic afebrile normotensive. Labs here in the emergency department show no significant leukocytosis CMP is unremarkable. EKG shows sinus rhythm with occasional PACs but no significant arrhythmias. CMP is unremarkable no signific ant VARINDER or electrolyte abnormalities urine drug screen is negative and viral panel is negative. Chest x-ray shows no signs of pneumonia or CHF to explain her symptoms. Patient has no alcohol level or salicylate or Tylenol level to explain her symptoms. Additionally CT head shows no acute intracranial findings. UA does show positive nitrites with moderate bacteria this could explain patient's symptoms ceftriaxone started here in the ED. Daughter notes no significant past medical history of UTIs. I did discuss with hospitalist Dr. Guy who accepts patient for persistent fatigue confusion and altered mental status with UTI. Blood cultures pending at time of admission. Discharge Plan Discharge Patient Disposition: 66 [facility] DC/Xfer Condition: Stable Clinical Impression: UTI (urinary tract infection), Altered mental status Prescriptions: No Action prednisone 5 MG tablet 4 mg PO DAILY methotrexate sodium 25 MG/ML solution Patient Comments: 4ml 1 shot a week levothyroxine 88 MCG tablet 88 mg PO DAILY potassium chloride [Klor-Con M20] 20 MEQ tablet,ER particles/crystals 20 meq PO DAILY baclofen 10 MG tablet 10 mg PO DAILY omeprazole 20 MG capsule,delayed release(DR/EC) 40 mg PO DAILY pravastatin 20 MG tablet 20 mg PO DAILY indomethacin 75 MG capsule, extended release 75 mg PO DAILY Patient Comments: 1 a day 2 next day Gamunex 10 ML solution Patient Comments: recived inj yesterday every 3 months duloxetine 20 MG capsule,delayed release(DR/EC) 20 mg PO DAILY magnesium 100 mg capsule 100 mg PO DAILY aspirin [Adult Aspirin Regimen] 81 mg tablet,delayed release (DR/EC) 81 mg PO DAILY magnesium 200 mg tablet 400 mg PO DAILY cholecalciferol (vitamin D3) [Vitamin D3] 25 mcg (1,000 unit) tablet,chewable 25 mcg PO DAILY Multi vitamin Print Language: [place]
[2024-08-12 20:11] LABS: CARBOXYHEMOGLOBIN VENOUS 1.5 % (0-1.5); HEMOGLOBIN TOTAL, VENOUS WB 12.9 g/dL (12.0-15.6); METHEMOGLOBIN VENOUS 0.3 % (<0.3-1.5); OXYHEMOGLOBIN, VENOUS 45 % (94-97)
[2024-08-12 20:23] LABS: ACETAMINOPHEN 0.2 ug/mL
[2024-08-12 20:43] LABS: BILIRUBIN,URINE NEGATIVE (NEGATIVE); GLUCOSE, URINE (UA) NEGATIVE (NEGATIVE); KETONES,URINE (UA) TRACE mg/dL (NEGATIVE); LEUKOCYTE ESTERASE, URINE NEGATIVE (NEGATIVE); NITRITE,URINE POSITIVE (NEGATIVE); OCCULT BLOOD,URINE TRACE-INTA (NEGATIVE); PH,URINE 5.5 PH (5.0-7.5); PROTEIN,URINE TRACE mg/dL (NEGATIVE); UROBILINOGEN,URINE 0.2 (NORMAL) E.U./dL (NORMAL)
--- NOTE | 2024-08-12 20:43 | XRAY Report ---
PROCEDURE: XR Chest 1V INDICATIONS: sepsis, ams work up TECHNIQUE: One view of the chest was acquired. COMPARISON: Chest radiograph 03/27/2022. FINDINGS: Surgical changes and devices: Partially evaluated thoracolumbar spinal fusion. Lungs and pleura: No pleural effusions or pneumothorax. No consolidation. Mildly increased intersti tial markings may represent mild pulmonary edema. Mediastinum: Mediastinal contours appear normal. Heart size is normal. Tortuous aorta. Bones and chest wall: No suspicious bony lesions. Overlying soft tissues appear unremarkable. IMPRESSION: Increased interstitial markings may represent mild pulmonary edema. No focal dense airspace consolida tion. Reviewed by: Fang Posey MD, PhD on 08/12/2024 8:41 PM PDT Approved by: Fang Posey MD, PhD on 08/12/2024 8:41 PM PDT Station ID: [id number]
[2024-08-12 20:50] LABS: CLARITY,URINE SL. CLOUDY (CLEAR)
[2024-08-12 20:54] LABS: AMPHETAMINE SCREEN,URINE NEGATIVE (NEGATIVE); BACTERIA,URINE Many /HPF (None Seen); BARBITURATE SCREEN,UR NEGATIVE (NEGATIVE); BENZODIAZEPINES SCREEN, URINE NEGATIVE (NEGATIVE); BUPRENORPHINE SCREEN, URINE NEGATIVE (NEGATIVE); COCAINE SCREEN URINE NEGATIVE (NEGATIVE); METHADONE SCREEN, URINE NEGATIVE (NEGATIVE); METHAMPHETAMINES SCREEN, URINE NEGATIVE (NEGATIVE); OPIATE SCREEN, URINE NEGATIVE (NEGATIVE); OXYCODONE SCREEN, URINE NEGATIVE (NEGATIVE); RBC,URINE 0-5 /HPF (0-5); SQUAMOUS EPITHELIAL CELL,UR RARE Squamous (<= Few); THC CANNABINOID SCREEN, URINE NEGATIVE (NEGATIVE); TRICYCLIC ANTIDEPRESSANT,URINE NEGATIVE (NEGATIVE)
[2024-08-12 21:09] LABS: SALICYLATE < 1.5 mg/dL
[2024-08-12 21:38] LABS: B. PARAPERTUSSIS- RESP PCR PAN NOT DETECTED; B. PERTUSSIS- RESP PCR PANEL NOT DETECTED; C. PNEUMONIAE- RESP PCR PANEL NOT DETECTED; CORONAVIRUS 229E-RESP PCR NOT DETECTED; CORONAVIRUS HKU1-RESP PCR NOT DETECTED; CORONAVIRUS NL63-RESP PCR NOT DETECTED; CORONAVIRUS OC43-RESP PCR NOT DETECTED; HUMAN METAPNEUMOVIRUS NOT DETECTED; INFLUENZA A- RESP PCR PANEL NOT DETECTED; INFLUENZA B - RESP PCR PANEL NOT DETECTED; M. PNEUMONIAE- RESP PCR PANEL NOT DETECTED; PARAINFLUENZA VIRUS 1 NOT DETECTED; PARAINFLUENZA VIRUS 2 NOT DETECTED; PARAINFLUENZA VIRUS 4 NOT DETECTED; RHINOVIRUS/ENTEROVIRUS NOT DETECTED; RSV- RESP PCR PANEL NOT DETECTED; SARS-CoV-2 -RESP PCR PANEL NOT DETECTED
[2024-08-12] MEDS: cefTRIAXone 1 GM VIAL IVP STA (21:56)
[2024-08-12] MEDS: SODIUM CHLORIDE 0.9% 1,000 ML IV STA (21:56)
[2024-08-12] MEDS: ACETAMINOPHEN 500 MG TABLET PO STA (22:33)
--- NOTE | 2024-08-12 23:17 | HISTORY & PHYSICAL EXAMINATION ---
Chief Complaint Chief Complaint Chief Complaint: confusion History of Present Illness Admitted From Admitted From:: home History Obtained From History obtained from: patient, chart review Exam Limitations: telemedicine History of Present Illness HPI Comment/Other: Ms Dickey is an 83 yo F with history of HTN, temporal arteritis on chronic prednisone, hypothyroidism, GERD. Presents to the ER with complaints of generalized fatigue, weakness, confusion. Per patient's daughter, at baseline she lives independently, get's help over the weekends from her daughter, she is usually AAOx3 (sometimes confused about the exact date). However since last night she has noticed her mother has been increasingly confused, answering questions inappropriately - did not know where she was earlier today which is very abnormal for her, currently knows she is in the hospital but not the city or why, etc. Denies fevers/chills. Denies n/v, abd pain. Denies cp, sob, cough. Patient normally ambulates without walker/cane, but today has been more "wobbly" when walking. No falls, no focal weakness. UDS negative. No elevated leukoctyosis. UA nitirites positive. CT head no acute intracranial findings. Review of Systems Status of ROS: 10 or more systems reviewed and unremarkable except as noted in history and below Constitutional Reports: Fatigue and Weakness; Denies: Fever or Chills Cardiovascular Denies: shortness of breath with exertion Respiratory Denies: Shortness of breath or Cough Gastrointestinal Denies: Abdominal pain, Abdominal distention, Nausea or Vomiting Musculoskeletal Reports: Muscle cramps (chronic, unchanged ) Neurological Reports: Headache, General weakness, Abnormal gait, Behavioral changes and Difficulty communicating thoughts; Denies: Focal weakness or Weakness in extremities Endocrine Reports: Fatigue PFSH Active Problems All Active Problems (Updated 08/12/24 @ 22:35 by Krystina Caldwell PA-C) Altered mental status (Acute) UTI (urinary tract infection) (Acute) Nausea (Acute) Dizziness (Acute) Neck pain (Acute) Fall (Acute) Head injury (Acute) 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 (Date/Year): 1969 How many cigarettes a day do you smoke? (20 cigarettes=1 Pk): 10 Do you dip or chew tobacco?: No Do you vape?: No Living arrangement: At home Living Condition: Alone Support Person: Yes Relationship: Child Physical Activity: Walking Level: Independent Do you feel safe in your home environment?: Yes Suffered physical, verbal, emotional, or financial abuse?: No History of Abuse: No Frequency: Occasional Substance Use: denies use Meds/Allgy Home Medications Ambulatory Orders Medication Instructions Recorded Confirmed baclofen 10 mg tablet 10 mg PO DAILY 12/25/13 08/03/24 duloxetine 20 mg capsule,delayed 20 mg PO DAILY 12/25/13 08/03/24 release immune globulin(hum),capr(IgG) 10 12/25/13 08/03/24 % intravenous solution (Gamunex) indomethacin 75 mg 75 mg PO DAILY 12/25/13 08/03/24 capsule,extended release levothyroxine 88 mcg tablet 88 mg PO DAILY 12/25/13 08/03/24 methotrexate sodium 25 mg/mL 12/25/13 08/03/24 injection solution omeprazole 20 mg capsule,delayed 40 mg PO DAILY 12/25/13 08/03/24 release potassium chloride 20 mEq 20 meq PO DAILY 12/25/13 08/03/24 tablet,extended release(part/cryst) (Klor-Con M) pravastatin 20 mg tablet 20 mg PO DAILY 12/25/13 08/03/24 prednisone 5 mg tablet 4 mg PO DAILY 12/25/13 08/03/24 Multi vitamin 04/18/24 08/03/24 aspirin 81 mg tablet,delayed 81 mg PO DAILY 04/18/24 08/03/24 release (Adult Aspirin Regimen) cholecalciferol (vitamin D3) 25 25 mcg PO DAILY 04/18/24 08/03/24 mcg (1,000 unit) chewable tablet (Vitamin D3) magnesium 100 mg capsule 100 mg PO DAILY 04/18/24 08/03/24 magnesium 200 mg tablet 400 mg PO DAILY 04/18/24 08/03/24 Allergies Allergies Allergy/AdvReac Type Severity Reaction Status Date / Time Penicillins Allergy Rash Verified 08/12/24 18:23 Sulfa (Sulfonamide Allergy Unknown Verified 08/12/24 18:23 Antibiotics) Conclusion/Plan Lab Results Lab results reviewed: Yes 08/12/24 18:56 08/12/24 18:56 Diagnostic Imaging Results Diagnostic Imaging Results: positive Final report reviewed Other Other Results/Comments: Assessment/Plan: Acute metabolic encephalopathy secondary to UTI -Patient has been confused/disoriented, onset yesterday and progressively throughout the day today -UA positive nitrites - received IV ceftriaxone in ER -Follow up urine cultures -No elevated leukocytosis, afebrile, CXR no focal consolidation -PT/OT consults, no focal deficits but has been unsteady with gait today -CT head no acute intracranial findngs GERD -Continue PPI Hypothyroidism -Continue Synthroid Hx temporal arteritis on chronic prednisone -Continue prednisone 10 mg daily - home med list verified with patient's daughter at bedside DNR - confirmed with patient's daughter, she will bring the paperwork DVT ppx - Lovenox sc Telemedicine Consult Details Provider Location & Consult Time Telemedicine consultation conducted via videoconferencing?: Yes List names and roles of persons who participated in consult:: Malena ALAMO, patient/her daughter, ER provider (phone) Telemedicine provider location:: [facility]
[2024-08-12] MEDS ORDERED: SODIUM CHLORIDE FLUSH 0.9% 10 ML SYRINGE IVP PRN (23:55)
[2024-08-12] MEDS ORDERED: ONDANSETRON 4 MG/2 ML VIAL IVP PRN (23:55)
[2024-08-12] MEDS ORDERED: ACETAMINOPHEN 325 MG TABLET PO PRN (23:55)
[2024-08-13 04:35] VITALS: O2SAT 96
[2024-08-13] MEDS: SODIUM CHLORIDE FLUSH 0.9% 10 ML SYRINGE IVP SCH (06:22)
[2024-08-13 08:28] VITALS: BP 156/100; TEMP 97.9
[2024-08-13] MEDS: ASPIRIN EC 81 MG TABLET PO SCH (08:55)
[2024-08-13] MEDS: PANTOPRAZOLE 40 MG TABLET PO SCH (08:55)
[2024-08-13] MEDS: DULoxetine 30 MG CAPSULE PO SCH (08:55)
[2024-08-13] MEDS: POTASSIUM CHLORIDE 20 MEQ TABLET PO SCH (08:55)
[2024-08-13] MEDS: ENOXAPARIN 40 MG/0.4 ML SYRINGE SUBQ SCH (08:55)
[2024-08-13] MEDS: LEVOTHYROXINE 88 MCG TABLET PO SCH (08:55)
[2024-08-13] MEDS: predniSONE 5 MG TABLET PO SCH (08:55)
[2024-08-13] MEDS: BACLOFEN 10 MG TABLET PO SCH (08:55)
--- NOTE | 2024-08-13 12:17 | Discharge Summary ---
Discharge Summary Admit Date: 08/12/24 Discharge Date: 08/13/24 Discharging Provider: Dr Chilango Fox DIAGNOSES Admission Diagnoses: Acute metabolic encephalopathy UTI GERD Hypothyroidism Temporal arteritis HPI History of Present Illness: Acute metabolic encephalopathy - improved UTI - Improved GERD - Stable Hypothyroidism - Stable Temporal arteritis - Stable HOSPITAL COURSE Hospital Course: Patient presented to the ED with confusion and was diagnosed with UTI. Head CT was unremarkable as was chest x-ray. Lab work was generally reassuring. She was continued on IV ceftriaxone. Overnight the patient was doing well and improved into the morning with much of her encephalopathy resolved. On exam the following day she appeared comfortable, was ambulating independently, and was relatively asymptomatic. Her daughter was also present and confirms that the patient appeared much better than when she was sent to the emergency room. The patient was requesting to go home. The discussion was had leading to shared decision making about the reasonable plan to discharge home under the supervision of her daughter and to continue p.o. antibiotics. She was notified that should the urine culture and sensitivities demonstrate resistance to p.o. antibiotics, without any prescription could be sent. She was sent a prescription for cefdinir 300 mg every 12 hours for 14 total doses. She was also counseled on the importance of returning to ER for any concerning symptoms. ALLERGIES Allergies Allergy/AdvReac Type Severity Reaction Status Date / Time Penicillins Allergy Rash Verified 08/12/24 18:23 Sulfa (Sulfonamide Allergy Unknown Verified 08/12/24 18:23 Antibiotics) MEDICATIONS Ambulatory Orders Medication Instructions Recorded Confirmed baclofen 10 mg tablet 10 mg PO UD PRN muscle spasm 12/25/13 08/13/24 immune globulin(hum),capr(IgG) 10 10 ml IV .monthly 12/25/13 08/03/24 % intravenous solution (Gamunex) levothyroxine 88 mcg tablet 88 mg PO DAILY 12/25/13 08/13/24 methotrexate sodium 25 mg/mL 12/25/13 08/03/24 injection solution omeprazole 20 mg capsule,delayed 40 mg PO DAILY PRN acid reflux 12/25/13 08/13/24 release potassium chloride 20 mEq 20 meq PO DAILY 12/25/13 08/13/24 tablet,extended release(part/cryst) (Klor-Con M) prednisone 5 mg tablet 4 mg PO DAILY 12/25/13 08/13/24 Multi vitamin 1 tab PO DAILY 04/18/24 08/13/24 aspirin 81 mg tablet,delayed 81 mg PO DAILY 04/18/24 08/13/24 release (Adult Aspirin Regimen) albuterol sulfate 90 mcg/actuation 2 puff inhalation Q4H PRN 08/13/24 08/13/24 aerosol inhaler shortness of breath or wheezing benzonatate 100 mg capsule 100 mg PO ONCE PRN cough 08/13/24 08/13/24 cefdinir 300 mg capsule 300 mg PO Q12H #14 caps 08/13/24 duloxetine 30 mg capsule,delayed 30 mg PO BID 08/13/24 08/13/24 release lansoprazole 30 mg capsule,delayed 30 mg PO BID 08/13/24 08/13/24 release pramipexole 0.25 mg tablet 0.5 mg PO QPM 08/13/24 08/13/24 rosuvastatin 40 mg tablet 40 mg PO DAILY 08/13/24 08/13/24 PHYSICAL EXAM AT DISCHARGE General Appearance: positive No acute distress and Alert Respiratory: positive No respiratory distress and Breath sounds nml; negative Wheezes Cardiovascular: positive Regular rate & rhythm and No murmur Abdomen: positive Non-tender, No organomegaly, Nml bowel sounds and No distention Extremities: positive Non-tender Neurologic/Psychiatric: positive CN's nml (2-12), Motor nml, Sensation nml, Mood/affect nml and Disoriented to time; negative Disoriented to person, Disoriented to place, Weakness, Sensory loss, Slurred/abnml speech or Depressed mood/affect LABS 08/12/24 18:56 08/12/24 18:56 DIAGNOSTIC IMAGING Diagnostic Imaging Results: Final report reviewed SEPSIS Current Stage of Sepsis: Ruled out FOLLOW UP Follow Up: Follow up with PCP as soon as possible TIME SPENT Time Spent in Discharge (Minutes): 41 Discharge Plan Discharge Patient Disposition: Home, Self Care Condition: Stable Medically Cleared Date:: 08/13/24 Prescriptions: New cefdinir 300 mg capsule 300 mg PO Q12H Qty: 14 0RF Continued prednisone 5 MG tablet 4 mg PO DAILY methotrexate sodium 25 MG/ML solution Patient Comments: 4ml 1 shot a week levothyroxine 88 MCG tablet 88 mg PO DAILY potassium chloride [Klor-Con M20] 20 MEQ tablet,ER particles/crystals 20 meq PO DAILY baclofen 10 MG tablet 10 mg PO UD PRN (Reason: muscle spasm) Rx Instructions: 1-2 tabs 3 times daily as needed for muscle spasms. omeprazole 20 MG capsule,delayed release(DR/EC) 40 mg PO DAILY PRN (Reason: acid reflux) Gamunex 10 ML solution 10 ml IV .monthly Patient Comments: recived inj yesterday every 3 months aspirin [Adult Aspirin Regimen] 81 mg tablet,delayed release (DR/EC) 81 mg PO DAILY Multi vitamin 1 tab PO DAILY benzonatate 100 mg capsule 100 mg PO ONCE PRN (Reason: cough) Patient Comments: take 1 capsule by mouth three times a day if needed for cough lansoprazole 30 mg capsule,delayed release(DR/EC) 30 mg PO BID Patient Comments: take 1 capsule by mouth twice a day 30 MINUTES PRIOR TO MEALS albuterol sulfate 90 mcg/actuation HFA aerosol inhaler 2 puff INHALATION Q4H PRN (Reason: shortness of breath or wheezing) Patient Comments: inhale 2 puffs by mouth and INTO THE LUNGS every 4 to 6 hours if ... (REFER TO PRESCRIPTION NOTES). rosuvastatin 40 mg tablet 40 mg PO DAILY duloxetine 30 mg capsule,delayed release(DR/EC) 30 mg PO BID Patient Comments: take 1 capsule by mouth twice a day pramipexole 0.25 mg tablet 0.5 mg PO QPM Rx Instructions: administer 2 - 3 hours before bedtime Diet: Regular Interventions: Belongings Inventory Last Done: 08/13/24 00:57 Health Concerns: You had confusion due to a UTI. We have started you on antibiotics. I expect you should continue to improve, but I will be following up on the final urine culture report. If after I see that report I find you will need to switch antibiotics, I can let you know and call in a new prescription. Also, if you have any other concerning symptoms to suggest you are getting worse, such as worsening confusion, fever, nausea, vomiting, etc please return to the ER for evaluation. Print Language: Pashto Patient Instructions: UTI Stand Alone Forms: PCP List Follow-up Care: Khadar Cortez MD [Primary Care Provider] -
== END 2024-08-13 13:30 | disposition home or self-care (01) ==
LOC: MS3 18:13 → ED 18:13 → MS3 08-13 00:24
PROVIDERS: ADMIT Student in an Organized Health Care Education/Training Program; ATTEND Student in an Organized Health Care Education/Training Program

== ENCOUNTER 2025-03-03 19:25 | Inpatient (IN) ==
--- NOTE | 2025-03-03 19:52 | ED Physician Documentation ---
PD HPI ALTERED MENTAL STATUS Stated complaint Stated Complaint: WEAKNESS Chief complaint Chief Complaint: Neuro Additional information Additional information: BIBA. HPI from EMS. Early in stay, patient's daughter arrives and further provides EMS. Patient is unable to contribute to HPI/ROS due to AMS. Patient coming from private residence. EMS says that patient lives with daughter (however, daughter later arrives and says that the patient lives alone and the daughter visits her frequently as she did today). Patient was recently discharged from [facility] reportedly due to to UTI, discharged on Monday. Patient has had some falls recently (Monday and again this morning when she fell off the couch onto the floor; per EMS, daughter says there was no evidence of any significant injury with these falls). Daughter called EMS this evening due to patient exhibiting lethargy, generalized weakness, and occasional nonproductive cough. FSBS 91 for EMS, negative fast for EMS. EMS noted 89% room air pulse ox, corrects to mid-nineties with 2 L nasal cannula oxygen. EMS also found patient to be in atrial fibrillation rate in the 80s. BP 180/110 for EMS. On my HPI, patient is indeed confused; she is able to provide her name, knows she is in hospital but not which one, does not know the year (she says it is 1940 which is actually her year). When I ask her why she is in the emergency department, she says "I do not know". When I ask her if she is having any pain or feels ill in any way she replies "I do not know". Won Coma Scale Assess Eye opening: To Voice Verbal response: Confused Motor response: Obeys Commands Total score: 13 Meds/Allgy Home Medications Ambulatory Orders Medication Instructions Recorded Confirmed baclofen 10 mg tablet 10 mg PO UD PRN muscle spasm 12/25/13 08/13/24 immune globulin(hum),capr(IgG) 10 10 ml IV .monthly 08/03/24 % intravenous solution (Gamunex) levothyroxine 88 mcg tablet 88 mg PO DAILY 12/25/13 methotrexate sodium 25 mg/mL 12/25/13 08/03/24 injection solution omeprazole 20 mg capsule,delayed 40 mg PO DAILY PRN ac id reflux 12/25/13 08/13/24 release potassium chloride 20 mEq 20 meq PO DAILY 12/25/13 tablet,extended release(part/cryst) (Klor-Con M) prednisone 5 mg tablet 4 mg PO DAILY 12/25/1308/13 Multi vitamin 1 tab PO DAILY 04/18/2407/27 aspirin 81 mg tablet,delayed 81 mg PO DAILY 04/18/24 0 08/13/24 release (Adult Aspirin Regimen) albuterol sulfate 90 mcg/actuation 2 puff inhalation Q 4H PRN 08/13/24 08/13/24 aerosol inhaler shortness of breath or wheez ing benzonatate 100 mg capsule 100 mg PO ONCE PRN cough 08/13/24 cefdinir 300 mg capsule 300 mg PO Q12H #14 caps 07/27 01/20 duloxetine 30 mg capsule,delayed 30 mg PO BID 08/13/24 08/13/24 release lansoprazole 30 mg capsule,delayed 30 mg PO BID 08/13/24 release pramipexole 0.25 mg tablet 0.5 mg PO QPM 08/13/2407/27 rosuvastatin 40 mg tablet 40 mg PO DAILY 08/13/2407/27 Allergies Allergies Allergy/AdvReac Type Severity Reaction Status Date / Time Penicillins Allergy Rash Verified 03/03/25 19:40 Sulfa (Sulfonamide Allergy Unknown Verified 03/03/25 19:40 Antibiotics) PFSH Active Problems All Active Problems (Updated 03/04/25 @ 02:28 by Mago Hood MD) History of polymyalgia rheumatica (Acute) COVID-19 (Acute) Encephalopathy (Acute) Altered mental status (Acute) UTI (urinary tract infection) (Acute) Nausea (Acute) Dizziness (Acute) Neck pain (Acute) Fall (Acute) Head injury (Acute) 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 (Date/Year): 1969 How many cigarettes a day do you smoke? (20 cigarettes=1 Pk): 10 Second hand tobacco smoke exposure: No Do you dip or chew tobacco?: No Do you vape?: No Living arrangement: At home Living Condition: Alone Support Person: Yes Physical Activity: Walking Level: Independent Do you feel safe in your home environment?: Yes History of physical, verbal, emotional, or financial abuse?: No Frequency: Occasional Substance Use: denies use Exam Exam Vital Signs: Vital Signs x48h Pulse Resp BP Pulse Ox 03/04/25 01:30 77 16 136/94 H 97 03/04/25 00:00 73 16 148/90 H 92 03/03/25 23:40 89 18 172/103 H 97 03/03/25 22:06 75 18 183/96 H 98 03/03/25 22:00 122 H 27 H 95 03/03/25 21:31 81 21 97 03/03/25 21:00 87 16 164/108 H 96 03/03/25 20:30 84 16 97 03/03/25 20:29 72 22 164/108 H 03/03/25 20:29 101 H 45 H 164/108 H 95 03/03/25 20:29 82 21 96 Constitutional normal general appearance, no apparent distress and level of alertness abnormal (drowsy; falls asleep at times during H+P, awakens to repeated verbal) HENMT head/scalp atraumatic Eyes PERRL and EOMs abnormal (unable to test ) unable to test EOMI as she does not follow command to follow fingers w/ gaze Respiratory breath sounds equal bilaterally, clear to auscultation bilaterally and no wheezes scattered bilateral rhonchi, mild and more pronounced on left Cardiovascular normal heart rate noted, rhythm abnormal (irregular), no murmur and no edema Gastrointestinal abdomen soft to palpation, nontender to palpation, nondistended and normoactive bowel sounds Extremities no tenderness Neurology cranial nerve findings as noted: (tongue deviates subtly to left) and GCS ca lculation - Eye opening: To Voice Verbal response: Confused Motor response: Obeys Commands [place] Coma Scale total score: 13 Psychiatry orientation abnormal (disoriented to time) and affect abnormality noted (flat) Skin skin color normal Results Vitals Vitals: Vital Signs - 24 hr 03/03/25 19:35 03/03/25 20:29 03/03/25 20:29 Temperature 36.6 C Temperature Source Tympanic Pulse Rate 69 82 101 H Respiratory Rate 16 21 45 H Blood Pressure 162/94 H 164/108 H O2 Saturation 99 96 95 O2 Source Room air Pain Intensity 0 03/03/25 20:29 03/03/25 20:30 03/03/25 21:00 Temperature Temperature Source Pulse Rate 72 84 87 Respiratory Rate 22 16 16 Blood Pressure 164/108 H 164/108 H O2 Saturation 97 96 O2 Source Room air Room air Pain Intensity 0 0 03/03/25 21:31 03/03/25 22:00 03/03/25 22:06 Temperature Temperature Source Pulse Rate 81 122 H 75 Respiratory Rate 21 27 H 18 Blood Pressure 183/96 H O2 Saturation 97 95 98 O2 Source Room air Pain Intensity 03/03/25 23:40 03/04/25 00:00 03/04/25 01:30 Temperature Temperature Source Pulse Rate 89 73 77 Respiratory Rate 18 16 16 Blood Pressure 172/103 H 148/90 H 136/94 H O2 Saturation 97 92 97 O2 Source Room air Room air Room air Pain Intensity 0 0 Oxygen O2 Source Room air Labs Labs: Laboratory Tests 03/03/25 03/03/25 20:35 21:14 WBC 6.1 RBC 4.63 Hgb 12.8 Hct 40.0 MCV 86.4 MCH 27.6 MCHC 32.0 RDW 15.7 H Plt Count 170 MPV 10.9 H Neut # (Auto) 4.9 Lymph # (Auto) 0.4 L [place] # (Auto) 0.7 Eos # (Auto) 0.0 Baso # (Auto) 0.0 Absolute Nucleated RBC 0.00 Nucleated RBC % 0.0 Sodium 139 Potassium 4.0 Chloride 102 Carbon Dioxide 30 Anion Gap 7.0 BUN 13 Creatinine 0.8 Estimated GFR (MDRD) 68 L Glucose 91 Lactic Acid 1.2 Calcium 9.5 Magnesium 1.9 Total Bilirubin 0.4 AST 32 ALT 19 Alkaline Phosphatase 46 Total Protein 7.5 Albumin 4.1 Globulin 3.4 Albumin/Globulin Ratio 1.2 Lipase 20 TSH 0.95 Urine Color YELLOW Urine Clarity CLEAR Urine pH 6.5 Ur Specific [place] 1.015 Urine Protein 300 H Urine Glucose (UA) NEGATIVE Urine Ketones NEGATIVE Urine Occult Blood TRACE Urine Nitrite NEGATIVE Urine Bilirubin NEGATIVE Urine Urobilinogen 0.2 (NORMAL) Ur Leukocyte Esterase NEGATIVE Urine RBC 6-10 H Urine WBC 0-3 Ur Epithelial Cells RARE Transitional Ur Squamous Epith Cells RARE Squamous Urine Bacteria Rare Urine Mucus Few Strands Ur Microscopic Review INDICATED Urine Culture Comments NOT INDICATED Nasal Adenovirus (PCR) NOT DETECTED Nasal B. parapertussis DNA (PCR) NOT DETECTED Nasal Coronavir 229E PCR NOT DETECTED Nasal Coronavir HKU1 PCR NOT DETECTED Nasal Coronavir NL63 PCR NOT DETECTED Nasal Coronavir OC43 PCR NOT DETECTED Nasal Enterovir/Rhinovir PCR NOT DETECTED Nasal Influenza B PCR NOT DETECTED Nasal Influenza A PCR NOT DETECTED Nasal Parainfluen 1 PCR NOT DETECTED Nasal Parainfluen 2 PCR NOT DETECTED Nasal Parainfluen 3 PCR NOT DETECTED Nasal Parainfluen 4 PCR NOT DETECTED Nasal RSV (PCR) NOT DETECTED Nasal B.pertussis DNA PCR NOT DETECTED Nasal C.pneumoniae (PCR) NOT DETECTED Carlo Human Metapneumo PCR NOT DETECTED Nasal M.pneumoniae (PCR) NOT DETECTED Nasal SARS-CoV-2 (PCR) DETECTED A Ethyl Alcohol < 10.0 Rads (name of study) CTH: Relevant Findings:: Prelim report reviewed and See rad report CTA head/neck: Relevant Findings:: Prelim report reviewed and See rad report CXR: Relevant Findings:: Prelim report reviewed and See rad report PD Medical Decision Making ED course Complexity details: reviewed results, re-evaluated patient, considered differential, d/w patient and d/w family ED course: The supplemental nasal cannula oxygen that was placed by EMS was discontinued on patient arrival and throughout ED stay, patient maintained room-air saturations of 95-98%. No concerning findings on CBC, ER abdominal panel. Unremarkable urinalysis (6- 10 RBC/hpf on microscopy but otherwise unremarkable). Normal TSH. Respiratory PCR panel is positive for COVID. On reevaluation, patient remains very confused, follows few commands. On my initial exam, the patient was able to lift her right and then her left arm and keep them in place per command, but would not hold up either her right nor left leg. Same result on reevaluation. She is noted to be moving her legs at times; thus, I suspect her lack of holding her leg up on her own is due to confusion rather than weakness. Family at bedside indicate she is significantly off of her baseline mental status at this time. It is possible that her COVID infection is causing her confusion (or worsening a milder baseline confusion). At this point, patient is inappropriate for d/c home. I discussed this case with the [facility] practitioner on-call and he accepts patient for admission to [facility] hospitalist service. Discharge Plan Discharge Patient Disposition: [facility] DC/Xfer Condition: Stable Clinical Impression: COVID-19, Altered mental status Interventions: ED Admission Assessment Last Done: 03/04/25 02:45
--- NOTE | 2025-03-03 20:20 | XRAY Report ---
EXAM: XR Chest 1V DATE: 03/03/2025 7:44 PM PDT INDICATION: 84 years Female with AMS, cough, hypoxia TECHNIQUE: Single portable frontal view of the chest was obtained. LIMITATION: None. COMPARISON: 08/12/2024 FINDINGS: Lung parenchyma: No definite consolidation, interstitial abnormalities or focal lesion seen. Pleural spaces: No significant pleural effusion or definite focal lesion seen. Cardiomediastinum and mati: The cardiac silhouette and mediastinal contours are unremarkable. Osseous structures: No suspicious or acute focal lesion seen. Chest wall: No significant focal lesion seen. IMPRESSION: No signs of active cardiopulmonary disease. Reviewed by: Arturo Calvillo MD on 03/03/2025 8:17 PM PDT Approved by: Arturo Calvillo MD on 03/03/2025 8:17 PM PDT Station ID: [id number]
--- NOTE | 2025-03-03 20:32 | CT Report ---
PROCEDURE: CT Angio Head/Neck INDICATIONS: AMS CONTRAST: omni 300, 80ml TECHNIQUE: After the administration of intravenous contrast, images were acquired from the aortic arch through the [place]. 3-dimensional eniupko-chqxtcalv-tmmanjwjpy (MIP) and volume rendering reformats were acquired of the central intracranial vasculature and neck separately. COMPARISON: Same day CT head without contrast FINDINGS: Image quality: Diagnostic. Cerebral CT Angiogram: Internal carotid arteries: No acute findings. Intracranial ICA are patent with no significant stenosis. No occlusion. No aneurysm. Anterior cerebral arteries: Unremarkable. No significant stenosis. No occlusion. No aneurysm. Middle cerebral arteries: Unremarkable. No significant stenosis. No occlusion. No aneurysm. Posterior cerebral arteries: Unremarkable. No significant stenosis. No occlusion. No aneurysm. Basilar artery: Unremarkable. No significant stenosis. No occlusion. No aneurysm. Vertebral arteries: Unremarkable as visualized. Dural venous sinuses: Unremarkable given phase of enhancement. Other: Arterial phase appearance of the brain parenchyma is unremarkable. Neck CT Angiogram: Internal carotid arteries: Unremarkable. No significant stenosis. No dissection or occlusion. Common carotid arteries: Unremarkable. No significant stenosis. No dissection or occlusion. External carotid arteries: Unremarkable. No occlusion. Vertebral arteries: Unremarkable. No significant stenosis. No dissection or occlusion. Aortic Arch and Mediastinum: Partially visualized aortic arch unremarkable without evidence of aneurysm. Origins of the great vessels unremarkable. Other: Multilevel degenerative changes with endplate perforation and facet and uncovertebral arthrosis within the cervical spine. Otherwise the arterial phase soft tissues of the neck and chest are unremarkable. IMPRESSION: No significant intracranial arterial abnormalities are seen. No hemodynamically significant stenosis is seen within the arteries of the neck. Findings were discussed with provider Dr. Whittaker at time of dictation, 8:27 p.m. [facility] standard time on 03/03/2025. The estimate of stenosis included in the report of the imaging study was calculated using the NASCET method Reviewed by: Emerson Le MD on 03/03/2025 8:29 PM PDT Approved by: Emerson Le MD on 03/03/2025 8:29 PM PDT Station ID: [email or web address]
--- NOTE | 2025-03-03 20:33 | CT Report ---
PROCEDURE: CT Head W/O Stroke Protocol INDICATIONS: AMS TECHNIQUE: Noncontrast angled axial sections acquired from the foramen magnum to the vertex, with coronal reformats. For radiation dose reduction, the following was used: automated exposure control, adjustment of mA and/or kV according to patient size. COMPARISON: None. FINDINGS: Image quality: Excellent. CSF spaces: Basal cisterns are patent. No extra-axial fluid collections. Ventricles are normal in size and shape. Brain: No midline shift. No intracranial mass effect or hemorrhage. Flores- white matter interface is normal. Age-related global volume loss and chronic microvascular ischemic changes. Intracranial atherosclerotic vascular calcifications. Skull and face: Calvarium and visualized facial bones are intact, without suspicious lesions. Sinuses: Visualized sinuses and mastoids are clear. IMPRESSION: No acute intracranial pathology. Findings are concordant with preliminary interpretation provided by [facility]. Findings were discussed with ordering provider on 03/03/2025 at 8:27 PM PST. This study fulfills neurological imaging criteria for inclusion or exclusion of acute stroke therapies based on available published neurological imaging guidelines. Reviewed by: Emerson Le MD on 03/03/2025 8:29 PM PDT Approved by: mEerson Le MD on 03/03/2025 8:29 PM PDT Station ID: [email or web address]
[2025-03-03 21:14] LABS: GLUCOSE, URINE (UA) NEGATIVE (NEGATIVE); KETONES,URINE (UA) NEGATIVE (NEGATIVE); OCCULT BLOOD,URINE TRACE (NEGATIVE)
[2025-03-03 21:15] LABS: EPITHELIAL CELLS,UR RARE Transitional /HPF (<= Few); SQUAMOUS EPITHELIAL CELL,UR RARE Squamous (<= Few)
[2025-03-03 21:23] LABS: HCT - HEMATOCRIT 40.0 % (37.0-47.0); HGB - HEMOGLOBIN 12.8 g/dL (12.0-16.0); MEAN PLATELET VOLUME 10.9 fL (7.9-10.8); NRBC ABSOLUTE COUNT (AUTO) 0.00 x10^3/uL; NUCLEATED RED BLOOD CELLS AUTO 0.0 /100WBC; PLT - PLATELET COUNT 170 10^3/uL (130-450); RED CELL DISTRIBUTION WIDTH 15.7 % (12.0-15.0)
[2025-03-03 21:36] LABS: ALT ALANINE AMINOTRANSFERASE 19 IU/L (10-60); AST ASPARTATE AMINOTRANSFERASE 32 IU/L (10-42); BUN - BLOOD UREA NITROGEN 13 mg/dL (6-20); CARBON DIOXIDE - CO2 30 mmol/L (21-32); CREATININE 0.8 mg/dL (0.6-1.3); ETOH - ETHANOL < 10.0 mg/dL; GFR - MDRD 68 (>89)
[2025-03-03 21:37] LABS: CORONAVIRUS 229E-RESP PCR NOT DETECTED; CORONAVIRUS HKU1-RESP PCR NOT DETECTED; CORONAVIRUS NL63-RESP PCR NOT DETECTED; CORONAVIRUS OC43-RESP PCR NOT DETECTED
[2025-03-03 21:40] LABS: HUMAN METAPNEUMOVIRUS NOT DETECTED; INFLUENZA A- RESP PCR PANEL NOT DETECTED; INFLUENZA B - RESP PCR PANEL NOT DETECTED; PARAINFLUENZA VIRUS 1 NOT DETECTED; PARAINFLUENZA VIRUS 2 NOT DETECTED; PARAINFLUENZA VIRUS 4 NOT DETECTED; RHINOVIRUS/ENTEROVIRUS NOT DETECTED; RSV- RESP PCR PANEL NOT DETECTED; SARS-CoV-2 -RESP PCR PANEL DETECTED
[2025-03-03 21:41] LABS: B. PARAPERTUSSIS- RESP PCR PAN NOT DETECTED; B. PERTUSSIS- RESP PCR PANEL NOT DETECTED; C. PNEUMONIAE- RESP PCR PANEL NOT DETECTED; M. PNEUMONIAE- RESP PCR PANEL NOT DETECTED
[2025-03-04] MEDS: KETOROLAC 30 MG/ML VIAL IVP STA (00:04)
[2025-03-04] MEDS: SODIUM CHLORIDE 0.9% 1,000 ML IV STA (00:05)
--- NOTE | 2025-03-04 02:31 | HISTORY & PHYSICAL EXAMINATION ---
Chief Complaint Chief Complaint Chief Complaint: Fatigue Weakness Altered mental status History of Present Illness Admitted From Admitted From:: Home History Obtained From History obtained from: Daughter Yesika on phone and from ER Physician History of Present Illness HPI Comment/Other: Patient is 84 y/o F with prior hx of Hypothyroidism, Stiff person syndrome, hx of Polymyalgia rheumatica and history of chronic low dose steroid use prednisone 5 mg daily, receives IVIG monthly , is brought to hospital from home. 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 Since yesterday patient started having confusion and worsening myalgia and severe fatigue where patient appeared non tired and no energy to ambulate, yesterday patient started dry cough and runny nose, as per daughter some family members are sick in home but not tested for covid . in ER patient had work up including CT head and Neck, labs and Swab for viral etiology, patient is found to have COVID-19 + infection, Hospitalist team is asked to evaluate for admission considering severe fatigue and lethargy. Patient was seen at [facility] and discharged on 02/28/2025 after 3 day hospitalization and treated for UTI with IV ceftriaxone and Urine culture at outside hospital was not consistent with organism but it was mixed shandra, as per daughter patient started feeling better until yesterday and started having decline with symptoms and mental status changes. Meds/Allgy Home Medications Ambulatory Orders Medication Instructions Recorded Confirmed baclofen 10 mg tablet 10 mg PO UD PRN muscle spasm 12/25/13 08/13/24 immune globulin(hum),capr(IgG) 10 10 ml IV .monthly 08/03/24 % intravenous solution (Gamunex) levothyroxine 88 mcg tablet 88 mg PO DAILY 12/25/13 methotrexate sodium 25 mg/mL 12/25/13 08/03/24 injection solution omeprazole 20 mg capsule,delayed 40 mg PO DAILY PRN ac id reflux 12/25/13 08/13/24 release potassium chloride 20 mEq 20 meq PO DAILY 12/25/13 tablet,extended release(part/cryst) (Klor-Con M) prednisone 5 mg tablet 4 mg PO DAILY 12/25/1308/13 Multi vitamin 1 tab PO DAILY 04/18/2407/27 aspirin 81 mg tablet,delayed 81 mg PO DAILY 04/18/24 0 08/13/24 release (Adult Aspirin Regimen) albuterol sulfate 90 mcg/actuation 2 puff inhalation Q 4H PRN 08/13/24 08/13/24 aerosol inhaler shortness of breath or [place] ing benzonatate 100 mg capsule 100 mg PO ONCE PRN cough 08/13/24 cefdinir 300 mg capsule 300 mg PO Q12H #14 caps 07/27 01/20 duloxetine 30 mg capsule,delayed 30 mg PO BID 08/13/24 08/13/24 release lansoprazole 30 mg capsule,delayed 30 mg PO BID 08/13/24 release pramipexole 0.25 mg tablet 0.5 mg PO QPM 08/13/2407/27 rosuvastatin 40 mg tablet 40 mg PO DAILY 08/13/2407/27 Allergies Allergies Allergy/AdvReac Type Severity Reaction Status Date / Time Penicillins Allergy Rash Verified 03/03/25 19:40 Sulfa (Sulfonamide Allergy Unknown Verified 03/03/25 19:40 Antibiotics) PFSH Active Problems All Active Problems (Updated 03/04/25 @ 02:28 by Mago Hood MD) History of polymyalgia rheumatica (Acute) COVID-19 (Acute) Encephalopathy (Acute) Altered mental status (Acute) UTI (urinary tract infection) (Acute) Nausea (Acute) Dizziness (Acute) Neck pain (Acute) Fall (Acute) Head injury (Acute) 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 (Date/Year): 1970 How many cigarettes a day do you smoke? (20 cigarettes=1 Pk): 10 Second hand tobacco smoke exposure: No Do you dip or chew tobacco?: No Do you vape?: No Living arrangement: At home Living Condition: Alone Support Person: Yes Physical Activity: Walking Level: Independent Do you feel safe in your home environment?: Yes History of physical, verbal, emotional, or financial abuse?: No Frequency: Occasional Substance Use: denies use Review of Systems Status of ROS: unobtainable due to medical condition Exam Exam Vital Signs: Vital Signs x48h Temp Pulse Resp BP Pulse Ox 03/04/25 01:30 77 16 136/94 H 97 03/04/25 00:00 73 16 148/90 H 92 03/03/25 23:40 89 18 172/103 H 97 03/03/25 22:06 75 18 183/96 H 98 03/03/25 22:00 122 H 27 H 95 03/03/25 21:31 81 21 97 03/03/25 21:00 87 16 164/108 H 96 03/03/25 20:30 84 16 97 03/03/25 20:29 72 22 164/108 H 03/03/25 20:29 101 H 45 H 164/108 H 95 03/03/25 20:29 82 21 96 03/03/25 19:35 36.6 C 69 16 162/94 H 99 for Detailed Exam see note of ED MD, Telemedicine visit with presence of RN who performed bedside exam, confused , falls back sleep , appears fatigue, non focal exam, I myself unable to obtain exam due to limitations of tele visit Conclusion/Plan Problem List (1) COVID-19: (2) Encephalopathy: (3) Stiff-man syndrome: (4) History of polymyalgia rheumatica: Plan - Admit to hospital - continue IVF supportive care, PT OT consult, patient is altered , obtain swallow evaluation in AM - Give Solumedrol 10 mg IV (patient is on chronic prednisone 5 mg ) unsafe for PO route on my evaluation - Obtain TSH and Free T4 - Start Remdesivir 200 mg IV x 1 and 100 mg x 2 days (total 3 day course) - Reconcile medication and start if appropriate for PO route in AM - Obtain CRP , ESR - Obtain Procalcitonin - patient is DNR as per Daughter - Continue heparin for DVT prophylaxis Lab Results 03/03/25 21:14 03/03/25 21:14
[2025-03-04] MEDS ORDERED: HYDROcod/ACETAM 10 MG/325 MG TABLET PO PRN (02:32)
[2025-03-04] MEDS ORDERED: HYDROcod/ACETAM 5/325 MG TABLET PO PRN (02:32)
[2025-03-04] MEDS ORDERED: NON FORMULARY MED (Remdesivir 200 MG) IV SCH (02:32)
[2025-03-04] MEDS: SODIUM CHLORIDE 0.9% 1,000 ML IV SCH (03:11)
[2025-03-04] MEDS: methylPREDNISolone SUCCINATE 40 MG/ML VIAL IVP ONE (03:17)
[2025-03-04 05:50] LABS: HCT - HEMATOCRIT 38.8 % (37.0-47.0); HGB - HEMOGLOBIN 12.6 g/dL (12.0-16.0); MEAN PLATELET VOLUME 11.6 fL (7.9-10.8); NRBC ABSOLUTE COUNT (AUTO) 0.00 x10^3/uL; NUCLEATED RED BLOOD CELLS AUTO 0.0 /100WBC; PLT - PLATELET COUNT 164 10^3/uL (130-450); RED CELL DISTRIBUTION WIDTH 15.6 % (12.0-15.0)
[2025-03-04 06:08] LABS: BUN - BLOOD UREA NITROGEN 12.0 mg/dL (6-20); CARBON DIOXIDE - CO2 30.0 mmol/L (21-32); CREATININE 0.7 mg/dL (0.6-1.3); GFR - MDRD 80.0 (>89)
[2025-03-04] MEDS: OLANZapine 10 MG VIAL IM ONE ×2 (06:33→23:36)
[2025-03-04] MEDS: SODIUM CHLORIDE FLUSH 0.9% 10 ML SYRINGE IVP SCH (09:16)
[2025-03-04] MEDS: HALOPERIDOL 5 MG/ML VIAL IVP ONE (09:25)
[2025-03-04] MEDS: HEPARIN 5,000 UNIT/ML VIAL SUBQ SCH (09:28)
--- NOTE | 2025-03-04 14:51 | PHARMACY PROGRESS NOTE ---
Best Possible Medication History Admit Date and Time: 03/04/25 0148 Home Medications Medication Instructions Recorded Confirmed Type immune globulin(hum),capr(IgG) 10 10 ml IV .monthly 03/04/25 History % intravenous solution (Gamunex) levothyroxine 88 mcg tablet 88 mg PO DAILY 12/25/13 History methotrexate sodium 25 mg/mL 100 mg IM .WEEKLY 4 03/04/25 History injection solution prednisone 5 mg tablet 10 mg PO DAILY 12/25/1312/20 History Multi vitamin 1 tab PO DAILY 04/18/2412/20 History duloxetine 30 mg capsule,delayed 30 mg PO BID 08/13/24 03/04/25 History release lansoprazole 30 mg capsule,delayed 30 mg PO BID 03/04/25 History release pramipexole 0.25 mg tablet 0.5 mg PO QPM 08/13/2412/20 History rosuvastatin 40 mg tablet 40 mg PO DAILY 08/13/2412/20 History apixaban 5 mg tablet (Eliquis) 5 mg PO BID 03/04/25 History Processed by: Pharmacy Medications reviewed in ED?: Yes Medication History completed: Yes Patient Interview: Pt unable to participate Secondary Source(s): Insurance records [facility] Statement: As the person ultimately responsible for medication therapy, providers are able to order a medication from an existing home medication list in [facility] via the "Reconcile Routine" prior to Confirmation of that medication by network support. Such practice is discouraged except when the physician, in their clinical judgment, deems that a medical need exists for a medication without regard to previous use.
--- NOTE | 2025-03-04 15:34 | PROVIDER PROGRESS NOTE ---
Current Medications Current Medications Current Medications: Current Medications Generic Name Dose Route Start Last Admin Trade Name Freq PRN Reason Stop Dose Admin Acetaminophen 650 mg 03/04/25 02:32 Acetaminophen 325 Mg Tablet PO Q4HR PRN Pain 1 to 4, or Fever Hydrocodone Bitart/Acetaminophen 1 tab 03/04/25 02:32 Hydrocod/Acetam 5/325 Mg Tablet PO Q4HR PRN Pain 5 to 7 Hydrocodone Bitart/Acetaminophen 1 tab 03/04/25 02:32 Hydrocod/Acetam 10 Mg/325 Mg Tablet PO Q4HR PRN Pain 8 to 10 Heparin Sodium (Porcine) 5,000 unit 03/04/25 09:00 03/04/25 09:28 Heparin 5,000 Unit/Ml Vial SUBQ 5,000 unit BID DESMOND Administration Sodium Chloride 1,000 mls @ 100 mls/hr 03/04/25 02:32 03/04/25 10:02 Normal Saline 0.9% IV 100 mls/hr .Q10H DESMOND Administration Sodium Chloride 10 ml 03/04/25 02:32 Sodium Chloride Flush 0.9% 10 Ml Syringe IVP PRN PRN NEEDED PER PROVIDER ORDERS Sodium Chloride 10 ml 03/04/25 09:00 03/04/25 09:16 Sodium Chloride Flush 0.9% 10 Ml Syringe IVP 10 ml 0100,0900,1700 DESMOND Administration Objective Vital Signs/Intake & Output Vital Signs: Vital Signs x48h Temp Pulse Resp BP Pulse Ox 03/04/25 13:00 100.0 F 56 L 16 153/84 H 94 03/04/25 10:58 58 L 134/83 H 94 03/04/25 09:00 97.9 F 64 18 164/107 H 97 Intake & Output: Intake & Output 03/01/25 03/02/25 03/03/25 03/04/25 23:59 23:59 23:59 23:59 Intake Total 1138 / 1138 Output Total 975 / 975 Balance 163 / 163 Weight (kg) 78.6 kg Lab Results 03/04/25 05:19 03/04/25 05:19 Other Labs: Lab Results x24hrs 03/04/25 03/03/25 03/03/25 Range/Units 05:19 21:14 20:35 WBC 4.8 6.1 (4.8-10.8) x10^3/uL RBC 4.49 4.63 (4.20-5.40) 10^6/uL Hgb 12.6 12.8 (12.0-16.0) g/dL Hct 38.8 40.0 (37.0-47.0) % MCV 86.4 86.4 (81.0-99.0) fL MCH 28.1 27.6 (27.0-31.0) pg MCHC 32.5 32.0 (32.0-36.0) g/dL RDW 15.6 H 15.7 H (12.0-15.0) % Plt Count 164 170 (130-450) 10^3/uL MPV 11.6 H 10.9 H (7.9-10.8) fL Neut # (Auto) 3.5 4.9 (1.5-6.6) 10^3/uL Lymph # (Auto) 0.6 L 0.4 L (1.5-3.5) 10^3/uL [place] # (Auto) 0.6 0.7 (0.0-1.0) 10^3/uL Eos # (Auto) 0.0 0.0 (0.0-0.7) 10^3/uL Baso # (Auto) 0.0 0.0 (0.0-0.1) 10^3/uL Absolute Nucleated RBC 0.00 0.00 x10^3/uL Nucleated RBC % 0.0 0.0 /100WBC ESR 29 (0-30) mm/Hr Sodium 140 139 (135-145) mmol/L Potassium 3.5 4.0 (3.5-4.5) mmol/L Chloride 104 102 (101-111) mmol/L Carbon Dioxide 30 30 (21-32) mmol/L Anion Gap 6.0 7.0 (6-13) BUN 12 13 (6-20) mg/dL Creatinine 0.7 0.8 (0.6-1.3) mg/dL Estimated GFR (MDRD) 80 L 68 L (>89) Glucose 91 91 (74-104) mg/dL Lactic Acid 1.2 (0.5-2.2) mmol/L Calcium 8.8 9.5 (8.5-10.3) mg/dL Magnesium 1.9 (1.7-2.3) mg/dL Total Bilirubin 0.4 (0.2-1.0) mg/dL AST 32 (10-42) IU/L ALT 19 (10-60) IU/L Alkaline Phosphatase 46 (42-121) IU/L C-Reactive Protein 4.1 H (<0.5) mg/dL Total Protein 7.5 (6.4-8.9) g/dL Albumin 4.1 (3.2-5.5) g/dL Globulin 3.4 (2.1-4.2) g/dL Albumin/Globulin Ratio 1.2 (1.0-2.2) Lipase 20 (11-82) U/L TSH 1.99 0.95 (0.34-5.60) uIU/mL Urine Color YELLOW Urine Clarity CLEAR (CLEAR) Urine pH 6.5 (5.0-7.5) PH Ur Specific [place] 1.015 (1.002-1.030) Urine Protein 300 H (NEGATIVE) mg/dL Urine Glucose (UA) NEGATIVE (NEGATIVE) mg/dL Urine Ketones NEGATIVE (NEGATIVE) mg/dL Urine Occult Blood TRACE (NEGATIVE) Urine Nitrite NEGATIVE (NEGATIVE) Urine Bilirubin NEGATIVE (NEGATIVE) Urine Urobilinogen 0.2 (NORMAL) (NORMAL) E.U./dL Ur Leukocyte Esterase NEGATIVE (NEGATIVE) Urine RBC 6-10 H (0-5) /HPF Urine WBC 0-3 (0-5) /HPF Ur Epithelial Cells RARE Transitional (<= Few) /HPF Ur Squamous Epith Cells RARE Squamous (<= Few) Urine Bacteria Rare (None Seen) /HPF Urine Mucus Few Strands Ur Microscopic Review INDICATED Urine Culture Comments NOT INDICATED Nasal Adenovirus (PCR) NOT DETECTED Nasal B. parapertussis DNA (PCR) NOT DETECTED Nasal Coronavir 229E PCR NOT DETECTED Nasal Coronavir HKU1 PCR NOT DETECTED Nasal Coronavir NL63 PCR NOT DETECTED Nasal Coronavir OC43 PCR NOT DETECTED Nasal Enterovir/Rhinovir PCR NOT DETECTED Nasal Influenza B PCR NOT DETECTED Nasal Influenza A PCR NOT DETECTED Nasal Parainfluen 1 PCR NOT DETECTED Nasal Parainfluen 2 PCR NOT DETECTED Nasal Parainfluen 3 PCR NOT DETECTED Nasal Parainfluen 4 PCR NOT DETECTED Nasal RSV (PCR) NOT DETECTED Nasal B.pertussis DNA PCR NOT DETECTED Nasal C.pneumoniae (PCR) NOT DETECTED Carlo Human Metapneumo PCR NOT DETECTED Nasal M.pneumoniae (PCR) NOT DETECTED Nasal SARS-CoV-2 (PCR) DETECTED A Ethyl Alcohol < 10.0 mg/dL Assessment/Plan Problem List (1) COVID-19: (2) Encephalopathy: (3) Stiff-man syndrome: (4) History of polymyalgia rheumatica:
--- OUTSIDE RECORDS SUMMARY | 2025-03-04 19:50 | EXTERNAL MEDICAL SUMMARY RPT | Continuity of Care Document ---
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 Encephalopathy, unspecified i [facility] 2025-03-04 08:27 [facility] [place] [address] 2025-03-04 08:27 Personal history of other diseases of the musculoskeletal system and connective tissue [facility] 2025-03-04 19:03 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 Encephalopathy, unspecified [facility] 2025-03-04 19:03 COVID-[address] [place] [address] 2025-03-04 19:03 Personal history of other diseases of the musculoskeletal system and connective tissue [facility] Results/Labs test date facility value unit notes Result panel 1 WBC,URINE 2025-03-03 20:35 [facility] 0-3 /hpf (missing) UROBILINOGEN,URINE 2025-03-03 20:35 [facility] 0.2 (NORMAL) e.u./dl (missing) SPECIFIC GRAVITY,URINE 2025-03-03 20:35 [facility] 1.015 (missin g) (missing) PROTEIN,URINE 2025-03-03 20:35 [facility] 300 mg/dl (missing) RBC,URINE 2025-03-03 20:35 [facility] 6-10 /hpf (missing) PH,URINE 2025-03-03 20:35 [facility] 6.5 ph (missing) CLARITY,URINE 2025-03-03 20:35 [facility] CLEAR (missin g) (missing) SARS-CoV-2 -RESP PCR PANEL 2025-03-03 20:35 [facility] DETECTED (missin g) Called to ED/ZAIRE ARNOLD by Gita Hernández MT([facility]) at 213603/03/25. EMAILED Message to Loli Costa RN Infection Prevention by Gita Hernández MT([facility]) at 213603/03/25. Faxed to [facility] by Gita Hernández MT([facility]) at 213603/03/25. Severe Acute Respiratory Syndrome Coronavirus 2 (SARS-CoV-2) detected by the BioFire RP2.1 Panel, a multiplexed nucleic acid test intended for the simultaneous qualitative detection and differentiation of nucleic acids from multiple viral and bacterial respiratory organisms. MUCUS,URINE 2025-03-03 20:35 [facility] Few Strands (missin g) (missing) URINE MICROSCOPIC INDICATED? 2025-03-03 20:35 [facility] INDICATED (missin g) (missing) LEUKOCYTE ESTERASE, URINE 2025-03-03 20:35 [facility] NEGATIVE (missin g) (missing) NITRITE,URINE 2025-03-03 20:35 [facility] NEGATIVE (missin g) (missing) BILIRUBIN,URINE 2025-03-03 20:35 [facility] NEGATIVE (missin g) Bilirubin can be influenced by color interference. Please correlate positive results with clinical presentation GLUCOSE, URINE (UA) 2025-03-03 20:35 [facility] NEGATIVE mg/dl (missing) KETONES,URINE (UA) 2025-03-03 20:35 [facility] NEGATIVE mg/dl (missing) INFLUENZA A- RESP PCR PANEL 2025-03-03 20:35 [facility] NOT DETECTED (missin g) Influenza A including subtypes H1, H3, and H1-2009 not detected by the BioFire RP2.1 Panel, a multiplexed nucleic acid test intended for the simultaneous qualitative detection and differentiation of nucleic acids from multiple viral and bacterial respiratory organisms. B. PARAPERTUSSIS- RESP PCR CORRIGAN 2025-03-03 20:35 [facility] NOT DETECTED (missin g) Negative results for this organism do not preclude infection with this organism and may require additional laboratory testing (e.g., bacterial and viral culture, immunofluorescence , and radiography) when evaluating a patient with possible respiratory tract infection. B. PERTUSSIS- RESP PCR PANEL 2025-03-03 20:35 [facility] NOT DETECTED (missin g) Negative results for this organism do not preclude infection with this organism and may require additional laboratory testing (e.g., bacterial and viral culture, immunofluorescence , and radiography) when evaluating a patient with possible respiratory tract infection. C. PNEUMONIAE- RESP PCR PANEL 2025-03-03 20:35 [facility] NOT DETECTED (missin g) Negative results for this organism do not preclude infection with this organism and may require additional laboratory testing (e.g., bacterial and viral culture, immunofluorescence , and radiography) when evaluating a patient with possible respiratory tract infection. M. PNEUMONIAE- RESP PCR PANEL 2025-03-03:35 [facility] NOT DETECTED (missin g) Negative results for this organism do not preclude infection with this organism and may require additional laboratory testing (e.g., bacterial and viral culture, immunofluorescence , and radiography) when evaluating a patient with possible respiratory tract infection. CORONAVIRUS 229E-RESP PCR 2025-03-03 20:35 [facility] NOT DETECTED (missin g) Negative results in the setting ofa respiratory illness may be due to infection with pathogens not detected by this test, or lower respiratory tract infection that may not be detected by nasopharyngeal specimen. CORONAVIRUS HKU1-RESP PCR 2025-03-03 20:35 [facility] NOT DETECTED (missin g) Negative results in the setting ofa respiratory illness may be due to infection with pathogens not detected by this test, or lower respiratory tract infection that may not be detected by nasopharyngeal specimen. CORONAVIRUS [id number]-MDNS PCR 2025-03-03 20:35 [facility] NOT DETECTED (missin g) Negative results in the setting ofa respiratory illness may be due to infection with pathogens not detected by this test, or lower respiratory tract infection that may not be detected by nasopharyngeal specimen. CORONAVIRUS OF36-BFYW PCR 2025-03-03 20:35 [facility] NOT DETECTED (missin g) Negative results in the setting ofa respiratory illness may be due to infection with pathogens not detected by this test, or lower respiratory tract infection that may not be detected by nasopharyngeal specimen. HUMAN METAPNEUMOVIRUS 2025-03-03 20:35 [facility] NOT DETECTED (missin g) Negative results in the setting ofa respiratory illness may be due to infection with pathogens not detected by this test, or lower respiratory tract infection that may not be detected by nasopharyngeal specimen. INFLUENZA B - RESP PCR PANEL 2025-03-03 20:35 [facility] NOT DETECTED (missin g) Negative results in the setting ofa respiratory illness may be due to infection with pathogens not detected by this test, or lower respiratory tract infection that may not be detected by nasopharyngeal specimen. PARAINFLUENZA VIRUS 1 2025-03-03 20:35 [facility] NOT DETECTED (missin g) Negative results in the setting ofa respiratory illness may be due to infection with pathogens not detected by this test, or lower respiratory tract infection that may not be detected by nasopharyngeal specimen. PARAINFLUENZA VIRUS 2 2025-03-03 20:35 [facility] NOT DETECTED (missin g) Negative results in the setting ofa respiratory illness may be due to infection with pathogens not detected by this test, or lower respiratory tract infection that may not be detected by nasopharyngeal specimen. PARAINFLUENZA VIRUS 3 2025-03-03 20:35 [facility] NOT DETECTED (missin g) Negative results in the setting ofa respiratory illness may be due to infection with pathogens not detected by this test, or lower respiratory tract infection that may not be detected by nasopharyngeal specimen. PARAINFLUENZA VIRUS 4 2025-03-03 20:35 [facility] NOT DETECTED (missin g) Negative results in the setting ofa respiratory illness may be due to infection with pathogens not detected by this test, or lower respiratory tract infection that may not be detected by nasopharyngeal specimen. RHINOVIRUS/ENTEROVI ELIZABETH 2025-03-03 20:35 [facility] NOT DETECTED (missin g) Negative results in the setting ofa respiratory illness may be due to infection with pathogens not detected by this test, or lower respiratory tract infection that may not be detected by nasopharyngeal specimen. RSV- RESP PCR PANEL 2025-03-03 20:35 [facility] NOT DETECTED (missin g) Negative results in the setting ofa respiratory illness may be due to infection with pathogens not detected by this test, or lower respiratory tract infection that may not be detected by nasopharyngeal specimen. ADENOVIRUS - RESP PCR PANEL 2025-03-03 20:35 [facility] NOT DETECTED (missin g) YES Y NO YES NO NO NO NO Negative results in the setting ofa respiratory illness may be due to infection with pathogens not detected by this test, or lower respiratory tract infection that may not be detected by nasopharyngeal specimen. UR CULTURE IF IND 2025-03-03 20:35 [facility] NOT INDICATED (missin g) (missing) SQUAMOUS EPITHELIAL CELL,UR 2025-03-03 20:35 [facility] RARE Squamous (missin g) (missing) EPITHELIAL CELLS,UR 2025-03-03 20:35 [facility] RARE Transitional /hpf (missing) BACTERIA,URINE 2025-03-03 20:35 [facility] Rare /hpf (missing) OCCULT BLOOD,URINE 2025-03-03:35 [facility] TRACE (missin g) (missing) COLOR,URINE 2025-03-03 20:35 [facility] YELLOW (missin g) URINE CATHETERIZED Result panel 2 ETOH - ETHANOL 2025-03-03 21:14 [facility] < 10.0 mg/dl Blood Alcohol Levels Level Sporadic Drinkers Chronic drinkers 100 mg/dL Legally intoxicated* Minimal signs 200-250 mg/dL Alertness lost, Effort needed to becoming lethargic maintain emotional and motor control 300-350 mg/dL Stupor to coma Drowsy and slow >500 mg/dL Possible Coma *The legal definition of intoxication varies. This assy is for medical decision making only. As of November 2022 testing method has changed, this may include reference ranges. NUCLEATED RED BLOOD CELLS AUTO 2025-03-03 21:14 [facility] 0.0 /100wbc (missing) BASOPHILS # (AUTO) 2025-03-03 21: [facility] 0.0 10 3/ul (missing) EOSINOPHILS # (AUTO) 2025-03-03 21:14 [facility] 0.0 10 3/ul (missing) NRBC ABSOLUTE COUNT (AUTO) 2025-03-03 21:14 [facility] 0.00 x10 3/ul (missing) LYMPHOCYTES # (AUTO) 2025-03-03 21:14 [facility] 0.4 10 3/ul (missing) BILIRUBIN,TOTAL 2025-03-03 21:14 [facility] 0.4 mg/dl As of November 2022 test ing method has changed, this may include reference ranges. MONOCYTES # (AUTO) 2025-03-03 21:14 [facility] 0.7 10 3/ul (missing) CREATININE 2025-03-03 21:14 [facility] 0.8 mg/dl As of November 2022 test ing method has changed, this may include reference ranges. THYROID STIMULATING HORMONE 2025-03-03 21:14 [facility] 0.95 uiu/ml (missing) ALBUMIN/GLOBULIN RATIO 2025-03-03:14 [facility] 1.2 (missing) (missing) LACTIC ACID, VENOUS 2025-03-03:14 [facility] 1.2 mmol/l N As of November 2022 testing method has changed, this may include reference ranges. MAGNESIUM 2025-03-03:14 [facility] 1.9 mg/dl As of November 2022 test ing method has changed, this may include reference ranges. MEAN PLATELET VOLUME 2025-03-03:14 [facility] 10.9 fl (missing) CHLORIDE 2025-03-03:14 [facility] 102 mmol/l As of November 2022 test ing method has changed, this may include reference ranges. HGB - HEMOGLOBIN 2025-03-03 21:14 [facility] 12.8 g/dl (missing) BUN - BLOOD UREA NITROGEN 2025-03-03 21:14 [facility] 13 mg/dl As of November 2022 test ing method has changed, this may include reference ranges. SODIUM 2025-03-03 21:14 [facility] 139 mmol/l (missing) RED CELL DISTRIBUTION WIDTH 2025-03-03 21:14 [facility] 15.7 % (missing) PLT - PLATELET COUNT 2025-03-03 21:14 [facility] 170 10 3/ul (missing) ALT ALANINE AMINOTRANSFERASE 2025-03-03 21:14 [facility] 19 iu/l As of November 2022 test ing method has changed, this may include reference ranges. LIPASE 2025-03-03 21:14 [facility] 20 u/l As of November 2022 test ing method has changed, this may include reference ranges. MEAN CORPUSCULAR HEMOGLOBIN 2025-03-03 21:14 [facility] 27.6 pg (missing) GLOBULIN 2025-03-03 21:14 [facility] 3.4 g/dl (missing) CARBON DIOXIDE - CO2 2025-03-03:14 [facility] 30 mmol/l As of November 2022 test ing method has changed, this may include reference ranges. AST ASPARTATE AMINOTRANSFERASE 2025-03-03:14 [facility] 32 iu/l As of November 2022 test ing method has changed, this may include reference ranges. MEAN CORPUSCULAR HGB CONC 2025-03-03:14 [facility] 32.0 g/dl (missing) POTASSIUM 2025-03-03:14 [facility] 4.0 mmol/l As of November 2022 test ing method has changed, this may include reference ranges. ALBUMIN 2025-03-03:14 [facility] 4.1 g/dl As of November 2022 test ing method has changed, this may include reference ranges. RED BLOOD COUNT 2025-03-03 21:14 [facility] 4.63 10 6/ul (missing) NEUTROPHILS # (AUTO) 2025-03-03 21:14 [facility] 4.9 10 3/ul (missing) HCT - HEMATOCRIT 2025-03-03:14 [facility] 40.0 % (missing) ALKALINE PHOSPHATASE 2025-03-03:14 [facility] 46 iu/l As of November 2022 test ing method has changed, this may include reference ranges. WHITE BLOOD COUNT 2025-03-03:14 [facility] 6.1 x10 3/ul (missing) GFR - MDRD 2025-03-03 21:14 [facility] 68 (missing) The IDMS-traceable M DRD Study Equation has been validated extensively in and populations between the ages of 18 and 70 with impaired kidney function (eGFR < 60 mL/min/1.73m2) and has shown good performance for patients with all common causes of kidney disease. Although this equation has not been validated for patients older than 70, an MDRD-derived eGFR may still be a useful tool for providers caring for patients older than 70. References: http://www.nkdep.nih.gov /lab-evaluation/gfr/crea tinine-stand ardization, last updated July 2011. ANION GAP 2025-03-03 21:14 [facility] 7.0 (missing) (missing) TOTAL PROTEIN 2025-03-03 21:14 [facility] 7.5 g/dl As of November 2022 test ing method has changed, this may include reference ranges. MEAN CORPUSCULAR VOLUME 2025-03-03 21:[address] [facility] 86.4 fl (missing) CALCIUM 2025-03-03 21:14 [facility] 9.5 mg/dl As of November 2022 test ing method has changed, this may include reference ranges. GLUCOSE 2025-03-03 21:14 [facility] 91 mg/dl As of November 2022 test ing method has changed, this may include reference ranges. Result panel 3 NUCLEATED RED BLOOD CELLS AUTO 2025-03-04 05:19 [facility] 0.0 /100wbc (missing) BASOPHILS # (AUTO) 2025-03-04 05:19 [facility] 0.0 10 3/ul (missing) EOSINOPHILS # (AUTO) 2025-03-04 05:19 [facility] 0.0 10 3/ul (missing) NRBC ABSOLUTE COUNT (AUTO) 2025-03-04 05:19 [facility] 0.00 x10 3/ul (missing) MONOCYTES # (AUTO) 2025-03-04 05:19 [facility] 0.6 10 3/ul (missing) LYMPHOCYTES # (AUTO) 2025-03-04 05:19 [facility] 0.6 10 3/ul (missing) CREATININE 2025-03-04 05:19 [facility] 0.7 mg/dl As of November 2022 testing method has changed, this may include reference ranges. THYROID STIMULATING HORMONE 2025-03-04 05: [facility] 1.99 uiu/ml (missing) CHLORIDE 2025-03-04 05:19 [facility] 104 mmol/l As of November 2022 testing method has changed, this may include reference ranges. MEAN PLATELET VOLUME 2025-03-04 05: [facility] 11.6 fl (missing) BUN - BLOOD UREA NITROGEN 2025-03-04 05: [facility] 12 mg/dl As of Nov testing method has changed, this may include reference ranges. HGB - HEMOGLOBIN 2025-03-04 05: [facility] 12.6 g /dl (missing) SODIUM 2025-03-04 05: [facility] 140 mmol/l (missing) RED CELL DISTRIBUTION WIDTH 2025-03-04 05: [facility] 15.6 % (mi ssing) PLT - PLATELET COUNT 2025-03-04 05:19 [facility] 164 10 3/ul (missing) MEAN CORPUSCULAR HEMOGLOBIN 2025-03-04 05:19 [facility] 28.1 pg (missing) ESR- ERYTHROCYTE SEDIMENT RATE 2025-03-04 05: [facility] 29 mm/hr (missing ) NEUTROPHILS # (AUTO) 2025-03-04 05:19 [facility] 3.5 10 3/ul (missing) POTASSIUM 2025-03-04 05: [facility] 3.5 mmol/l As of November 2022 testing method has changed, this may include reference ranges. CARBON DIOXIDE - CO2 2025-03-04 05: [facility] 30 mmol/l As of November 2022 testing method has changed, this may include reference ranges. MEAN CORPUSCULAR HGB CONC 2025-03-04 05: [facility] 32.5 g/dl (missing) HCT - HEMATOCRIT 2025-03-04 05: [facility] 38.8 % (missing) CRP - C-REACTIVE PROTEIN 2025-03-04 05: [facility] 4.1 mg/dl As of Nov testing method has changed, this may include reference ranges. RED BLOOD COUNT 2025-03-04 05:19 [facility] 4.49 10 6/ul (missing) WHITE BLOOD COUNT 2025-03-04 05:19 [facility] 4.8 x10 3/ul (missing) ANION GAP 2025-03-04 05:19 [facility] 6.0 (missing ) (missing) CALCIUM 2025-03-04 05:19 [facility] 8.8 mg/dl As of November 2022 testing method has changed, this may include reference ranges. GFR - MDRD 2025-03-04 05:19 [facility] 80 (in g) The IDMS-traceable MDRD Study Equation has been validated extensively in and populations between the ages of 18 and 70 with impaired kidney function (eGFR < 60 mL/min/1.73m2) and has shown good performance for patients with all common causes of kidney disease. Although this equation has not been validated for patients older than 70, an MDRD-derived eGFR may still be a useful tool for providers caring for patients older than 70. References: http://www.nkdep.n ih.gov/lab-evaluat ion/gfr/creatinine -stand ardization, last updated July 2011. MEAN CORPUSCULAR VOLUME 2025-03-04 05:19 [facility] 86.4 fl (missing) GLUCOSE 2025-03-04 05:19 [facility] 91 mg/dl As of November 2022 testing method has changed, this may include reference ranges. Social History date description facility
[2025-03-04] MEDS ORDERED: HALOPERIDOL 5 MG/ML VIAL ONE (20:22)
[2025-03-04] MEDS: HALOPERIDOL 5 MG/ML VIAL IVP PRN (20:29)
[2025-03-04] MEDS: LORazepam 2 MG/ML VIAL IVP ONE (20:32)
[2025-03-05] MEDS: SODIUM CHLORIDE FLUSH 0.9% 10 ML SYRINGE IVP PRN (05:22)
[2025-03-05 05:48] LABS: HCT - HEMATOCRIT 42.7 % (37.0-47.0); HGB - HEMOGLOBIN 13.8 g/dL (12.0-16.0); MEAN PLATELET VOLUME 11.8 fL (7.9-10.8); NRBC ABSOLUTE COUNT (AUTO) 0.00 x10^3/uL; NUCLEATED RED BLOOD CELLS AUTO 0.0 /100WBC; PLT - PLATELET COUNT 162 10^3/uL (130-450); RED CELL DISTRIBUTION WIDTH 15.8 % (12.0-15.0)
[2025-03-05 07:40] LABS: BUN - BLOOD UREA NITROGEN 11.0 mg/dL (6-20); CARBON DIOXIDE - CO2 26.0 mmol/L (21-32); CREATININE 0.6 mg/dL (0.6-1.3); GFR - MDRD 95.0 (>89)
[2025-03-05] MEDS ORDERED: MAGNESIUM SULFATE 1 GM/2 ML VIAL IVP STA (07:46)
[2025-03-05] MEDS: POTASSIUM CHLOR 10 MEQ/100 ML 10 MEQ/100 ML BAG IV SCH ×2 (08:40→15:51)
[2025-03-05] MEDS: MAGNESIUM SULFATE 2 GRAM 2 GM/50 ML BAG IV ONE (08:40)
[2025-03-05] MEDS ORDERED: NON FORMULARY MED (Remdesivir 100 MG) IV SCH (09:00)
[2025-03-05] MEDS: LEVOTHYROXINE 88 MCG TABLET PO SCH (09:28)
[2025-03-05] MEDS: DEXTROSE 5% 1,000 ML IV SCH (11:26)
[2025-03-05] MEDS: hydrALAZINE INJ 20 MG/ML VIAL IVP ONE (11:27)
[2025-03-05 12:46] LABS: BUN - BLOOD UREA NITROGEN 12.0 mg/dL (6-20); CARBON DIOXIDE - CO2 21.0 mmol/L (21-32); CREATININE 0.6 mg/dL (0.6-1.3); GFR - MDRD 95.0 (>89)
--- NOTE | 2025-03-05 13:46 | PROVIDER PROGRESS NOTE ---
Subjective Subjective Subjective: This morning, patient is alert and oriented x 2. Later in the day, she is following commands, and is able to converse. She denies any fevers or chills. Overnight, she was very delirious. I spoke with her son, Beni Dickey, who is also an assistant production manager. He notes that she has had a generalized decline over the last few months in terms of her cognition. She may have worsening dementia. At her last neurology doctors appointment, she was able to make some decisions for herself, but she has worsened since. She currently lives alone. Her daughter is her primary caregiver. Of note, she was recently admitted and discharged from [place] on 02/25 for urinary tract infection and altered mental status. She was discharged home in stable condition, although the recommendation was for SNF, which she refused. Diet: NPO - pending speech evaluation, mentation improvement DVT: Heparin Code: DNR Dispo: Home vs SNF, pending clinical course Current Medications Current Medications Current Medications: Current Medications Generic Name Dose Route Start Last Admin Trade Name Freq PRN Reason Stop Dose Admin Acetaminophen 650 mg 03/04/25 02:32 Acetaminophen 325 Mg Tablet PO Q4HR PRN Pain 1 to 4, or Fever Hydrocodone Bitart/Acetaminophen 1 tab 03/04/25 02:32 Hydrocod/Acetam 5/325 Mg Tablet PO Q4HR PRN Pain 5 to 7 Atorvastatin Calcium 80 mg 03/05/25 21:00 Atorvastatin 40 Mg Tablet PO QPM DESMOND Duloxetine HCl 30 mg 03/05/25 21:00 Duloxetine 30 Mg Capsule PO BID DESMOND Heparin Sodium (Porcine) 5,000 unit 03/04/25 09:00 03/05/25 09:25 Heparin 5,000 Unit/Ml Vial SUBQ 5,000 unit BID DESMOND Administration Remdesivir 200 mg/ Sodium 250 mls @ 250 mls/hr 03/06/25 12:00 Chloride IV 03/06/25 12:59 ONCE ONE Remdesivir 100 mg/ Sodium 100 mls @ 200 mls/hr 03/07/25 09:00 Chloride IV 03/10/25 09:29 DAILY DESMOND Dextrose 1,000 mls @ 50 mls/hr 03/05/25 12:00 03/05/25 11:26 D5w IV 50 mls/hr .Q20H DESMOND Administration Levothyroxine Sodium 88 mcg 03/05/25 09:30 03/05/25 09:28 Levothyroxine 88 Mcg Tablet PO Not Given QDAC COUNT INCLUDES THE [facility] Pantoprazole Sodium 40 mg 03/05/25 16:00 Pantoprazole 40 Mg Tablet PO BIDAC COUNT INCLUDES THE [facility] Prednisone 10 mg 03/06/25 09:00 Prednisone 5 Mg Tablet PO DAILY COUNT INCLUDES THE [facility] Sodium Chloride 10 ml 03/04/25 02:32 03/05/25 05:22 Sodium Chloride Flush 0.9% 10 Ml Syringe IVP 10 ml PRN PRN Administration NEEDED PER PROVIDER ORDERS Sodium Chloride 10 ml 03/04/25 09:00 03/05/25 08:40 Sodium Chloride Flush 0.9% 10 Ml Syringe IVP 10 ml 0100,[id number],1700 DESMOND Administration Objective Vital Signs/Intake & Output Reviewed Vital Signs: Yes Vital Signs: Vital Signs x48h Temp Pulse Resp BP BP BP Pulse Ox 03/05/25 12:33 141/85 H 03/05/25 11:55 146/120 H 03/05/25 11:40 165/118 H 03/05/25 11:35 178/98 H 03/05/25 11:30 167/122 H 03/05/25 11:27 179/127 H 03/05/25 11:25 179/127 H 03/05/25 10:08 180/93 H 03/05/25 09:06 167/117 H 03/05/25 08:43 98.4 F 63 24 196/113 H 95 Intake & Output: Intake & Output 03/02/25 03/03/25 03/04/25 03/05/25 23:59 23:59 23:59 23:59 Intake Total 2138 / 2138 1773 / 1773 Output Total 1250 / 1250 1925 / 1925 Balance 888 / 888 -152 / -152 Weight (kg) 78.6 kg Objective General Appearance: positive Mild distress, Anxious and Lethargic Eyes Bilateral: positive Normal inspection, PERRL and EOMI ENT: positive ENT inspection nml, Pharynx nml and No signs of dehydration Neck: positive Nml inspection, Thyroid nml and No JVD Respiratory: positive Chest non-tender, No respiratory distress and Breath sounds nml; negative Wheezes, Rales or Rhonchi Cardiovascular: positive Regular rate & rhythm, No murmur and No gallop; negative Tachycardia or Systolic murmur Abdomen: positive Non-tender, No organomegaly and No distention; negative Guarding or Splenomegaly Back: positive Nml inspection; negative CVA tenderness (R) or CVA tenderness (L) Skin: positive Color nml, No rash, Warm and Dry Extremities: positive Non-tender, Full ROM, Nml appearance and No pedal edema Neurologic/Psychiatric: positive Disoriented to time Lab Results 03/05/25 05:15 03/05/25 12:17 Other Labs: Lab Results x24hrs 03/05/25 03/05/25 03/05/25 Range/Units 12:17 11:08 07:05 WBC (4.8-10.8) x10^3/uL RBC (4.20-5.40) 10^6/uL Hgb (12.0-16.0) g/dL Hct (37.0-47.0) % MCV (81.0-99.0) fL MCH (27.0-31.0) pg MCHC (32.0-36.0) g/dL RDW (12.0-15.0) % Plt Count (130-450) 10^3/uL MPV (7.9-10.8) fL Neut # (Auto) (1.5-6.6) 10^3/uL Lymph # (Auto) (1.5-3.5) 10^3/uL [place] # (Auto) (0.0-1.0) 10^3/uL Eos # (Auto) (0.0-0.7) 10^3/uL Baso # (Auto) (0.0-0.1) 10^3/uL Absolute Nucleated RBC x10^3/uL Nucleated RBC % /100WBC Sodium 141 147 H (135-145) mmol/L Potassium 3.3 L 2.4 L* (3.5-4.5) mmol/L Chloride 109 115 H (101-111) mmol/L Carbon Dioxide 21 26 (21-32) mmol/L Anion Gap 11.0 6.0 (6-13) BUN 12 11 (6-20) mg/dL Creatinine 0.6 0.6 (0.6-1.3) mg/dL Estimated GFR (MDRD) 95 95 (>89) Glucose 82 69 L (74-104) mg/dL POC Whole Bld Glucose 64 (70-100) mg/dL Calcium 8.2 L 7.2 L (8.5-10.3) mg/dL 03/05/25 Range/Units 05:15 WBC 3.3 L (4.8-10.8) x10^3/uL RBC 4.88 (4.20-5.40) 10^6/uL Hgb 13.8 (12.0-16.0) g/dL Hct 42.7 (37.0-47.0) % MCV 87.5 (81.0-99.0) fL MCH 28.3 (27.0-31.0) pg MCHC 32.3 (32.0-36.0) g/dL RDW 15.8 H (12.0-15.0) % Plt Count 162 (130-450) 10^3/uL MPV 11.8 H (7.9-10.8) fL Neut # (Auto) 1.8 (1.5-6.6) 10^3/uL Lymph # (Auto) 0.9 L (1.5-3.5) 10^3/uL [place] # (Auto) 0.5 (0.0-1.0) 10^3/uL Eos # (Auto) 0.0 (0.0-0.7) 10^3/uL Baso # (Auto) 0.0 (0.0-0.1) 10^3/uL Absolute Nucleated RBC 0.00 x10^3/uL Nucleated RBC % 0.0 /100WBC Sodium (135-145) mmol/L Potassium (3.5-4.5) mmol/L Chloride (101-111) mmol/L Carbon Dioxide (21-32) mmol/L Anion Gap (6-13) BUN (6-20) mg/dL Creatinine (0.6-1.3) mg/dL Estimated GFR (MDRD) (>89) Glucose (74-104) mg/dL POC Whole Bld Glucose (70-100) mg/dL Calcium (8.5-10.3) mg/dL Assessment/Plan Problem List (1) Encephalopathy: Impression: Patient presented due to worsening confusion, myalgia, as well as fatigue. She also had a dry cough. Tested positive for COVID-19. At this time, likely the COVID-19 is causing delirium with patient's underlying dementia and cognitive decline. Continue strict delirium precautions: Lights on during the day, out of bed for meals, family at bedside if possible. Will schedule Haldol nightly until patient's mentation improves. Due to mentation, patient is n.p.o. at this time. Continue speech therapy evaluation once patient improves. CT head and CT angiogram were completed, no acute pathology was noted. Of note, patient was admitted to [place] for altered mental status which was attributed to a urinary tract infection. On 02/25, MRI was completed at that time which showed no acute intracranial abnormality. Qualifiers: Encephalopathy type: unspecified encephalopathy Qualified Code(s): G 93.40 - Encephalopathy, unspecified (2) COVID-19: Impression: Overnight, patient required 1 to 2 L of oxygen. This was attributed to underlying sleep apnea as this desaturation event was happening only when patient was asleep. Now back on room air. Hold off on Decadron. Will consider remdesivir, but due to limited supplies, we do not have it until 03/06. It is usually effective when given early on in the course, so may defer use. 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 She follows with neurology outpatient. On IVIG every 4 weeks. She also takes baclofen 10 to 40 mg 2-3 times a day as needed, although daughter says she does not need this very often. This is currently held as patient continues to be altered. (4) Weakness: Impression: PT ordered. Patient may need SNF on discharge. (5) History of polymyalgia rheumatica: Impression: Patient follows with rheumatology. She is on prednisone 5 mg daily. Continued. (6) Depression: Impression: Continue duloxetine 30 mg twice daily, per home medication. Qualifiers: Depression Type: unspecified Qualified Code(s): F32.A - Depression, unspecified (7) JASBIR on CPAP: Impression: Continue home CPAP.
[2025-03-05] MEDS: PANTOPRAZOLE 40 MG TABLET PO SCH (15:51)
[2025-03-05] MEDS: DICLOFENAC SODIUM 1% GEL 50 GM TUBE TOP PRN (17:59)
[2025-03-05] MEDS: ACETAMINOPHEN 325 MG TABLET PO PRN (20:09)
[2025-03-05] MEDS: ATORVASTATIN 40 MG TABLET PO SCH (20:09)
[2025-03-05] MEDS: HALOPERIDOL 5 MG/ML VIAL IVP SCH (20:10)
[2025-03-05] MEDS ORDERED: ACETAMINOPHEN 1,000 MG/100 ML 1,000 MG/100 ML BAG IV PRN (20:37)
[2025-03-06 05:37] LABS: HCT - HEMATOCRIT 40.4 % (37.0-47.0); HGB - HEMOGLOBIN 12.9 g/dL (12.0-16.0); MEAN PLATELET VOLUME 11.0 fL (7.9-10.8); NRBC ABSOLUTE COUNT (AUTO) 0.00 x10^3/uL; NUCLEATED RED BLOOD CELLS AUTO 0.0 /100WBC; PLT - PLATELET COUNT 200 10^3/uL (130-450); RED CELL DISTRIBUTION WIDTH 15.5 % (12.0-15.0)
[2025-03-06 05:53] LABS: BUN - BLOOD UREA NITROGEN 15.0 mg/dL (6-20); CARBON DIOXIDE - CO2 24.0 mmol/L (21-32); CREATININE 0.7 mg/dL (0.6-1.3); GFR - MDRD 80.0 (>89)
[2025-03-06] MEDS: POTASSIUM CHLOR 10 MEQ/100 ML 10 MEQ/100 ML BAG IV SCH (08:17)
[2025-03-06] MEDS ORDERED: REMDESIVIR 200 MG in SODIUM CHLORIDE 0.9% 250 ML IV ONE (12:00)
--- NOTE | 2025-03-06 12:33 | PROVIDER PROGRESS NOTE ---
Subjective Subjective Subjective: This morning, patient is doing much better. She is alert and oriented x 1-2, but is conversing appropriately, following commands, and is pleasant. Speech therapy evaluated the patient this morning, and started her on a pured diet, and may advance further later this afternoon. Her daughter and grandson were at bedside, and were updated about plan of care. She has no shortness of breath, no fevers, no chills. PT did work with the patient, and recommendations are still pending. Diet: Pureed diet, thin liquids DVT: Heparin Code: DNR Dispo: Home vs SNF, pending clinical course Current Medications Current Medications Current Medications: Current Medications Generic Name Dose Route Start Last Admin Trade Name Freq PRN Reason Stop Dose Admin Acetaminophen 650 mg 03/04/25 02:32 03/05/25 20:09 Acetaminophen 325 Mg Tablet PO 650 mg Q4HR PRN Administration Pain 1 to 4, or Fever Hydrocodone Bitart/Acetaminophen 1 tab 03/04/25 02:32 Hydrocod/Acetam 5/325 Mg Tablet PO Q4HR PRN Pain 5 to 7 Atorvastatin Calcium 80 mg 03/05/25 21:00 03/05/25 20:09 Atorvastatin 40 Mg Tablet PO 80 mg QPM DESMOND Administration Diclofenac Sodium 2 gm 03/05/25 17:37 03/05/25 17:59 Diclofenac Sodium 1% Gel 50 Gm Tube TOP 2 gm QID PRN Administration Mild Pain (Level 1-3) Duloxetine HCl 30 mg 03/05/25 21:00 03/06/25 08:18 Duloxetine 30 Mg Capsule PO 30 mg BID DESMOND Administration Haloperidol 3 mg 03/05/25 21:00 03/05/25 20:10 Haloperidol 5 Mg/Ml Vial IVP 3 mg NIGHTLY DESMOND Administration Heparin Sodium (Porcine) 5,000 unit 03/04/25 09:00 03/06/25 08:33 Heparin 5,000 Unit/Ml Vial SUBQ 5,000 unit BID DESMOND Administration Acetaminophen 1,000 mg in 100 mls @ 400 mls/hr 03/05/25 20:37 Acetaminophen IV Q6HR PRN Moderate Pain (Level 4-6) Levothyroxine Sodium 88 mcg 03/05/25 09:30 03/06/25 06:09 Levothyroxine 88 Mcg Tablet PO 88 mcg QDAC DESMOND Administration Lidocaine 1 patch 03/06/25 09:00 03/06/25 08:18 Lidocaine Patch 4% TOP Not Given DAILY DESMOND Pantoprazole Sodium 40 mg 03/05/25 16:00 03/06/25 06:09 Pantoprazole 40 Mg Tablet PO 40 mg BIDAC DESMOND Administration Polyethylene Glycol 17 gm 03/06/25 09:00 03/06/25 09:23 Polyethylene Glycol 3350 17 Gm Packet PO 17 gm DAILY DESMOND Administration Prednisone 5 mg 03/05/25 14:00 03/06/25 08:18 Prednisone 5 Mg Tablet PO 5 mg DAILY DESMOND Administration Sodium Chloride 10 ml 03/04/25 02:32 03/05/25 05:22 Sodium Chloride Flush 0.9% 10 Ml Syringe IVP 10 ml PRN PRN Administration NEEDED PER PROVIDER ORDERS Sodium Chloride 10 ml 03/04/25 09:00 03/06/25 08:17 Sodium Chloride Flush 0.9% 10 Ml Syringe IVP 10 ml 0100,0900,1700 DESMOND Administration Objective Vital Signs/Intake & Output Reviewed Vital Signs: Yes Vital Signs: Vital Signs x48h Temp Pulse Resp BP Pulse Ox 03/06/25 12:12 98.6 F 64 16 130/60 97 03/06/25 08:43 98.1 F 64 14 125/94 H 93 Intake & Output: Intake & Output 03/03/25 03/04/25 03/05/25 03/06/25 23:59 23:59 23:59 23:59 Intake Total 2138 / 2138 2173 / 2173 1337 / 1337 Output Total 1250 / 1250 3400 / 3400 760 / 760 Balance 888 / 888 -1227 / -1227 577 / 577 Weight (kg) 78.6 kg Objective General Appearance: positive No acute distress and Alert; negative Anxious Eyes Bilateral: positive Normal inspection, PERRL and EOMI ENT: positive ENT inspection nml, Pharynx nml and No signs of dehydration Neck: positive Nml inspection, Thyroid nml and No JVD Respiratory: positive Chest non-tender, No respiratory distress and Breath sounds nml; negative Wheezes, Rales or Rhonchi Cardiovascular: positive Regular rate & rhythm, No murmur and No gallop; negative Tachycardia or Systolic murmur Abdomen: positive Non-tender, No organomegaly and No distention; negative Guarding or Splenomegaly Back: positive Nml inspection; negative CVA tenderness (R) or CVA tenderness (L) Skin: positive Color nml, No rash, Warm and Dry Extremities: positive Non-tender, Full ROM, Nml appearance and No pedal edema Neurologic/Psychiatric: positive Mood/affect nml and Disoriented to time Lab Results 03/06/25 05:10 03/06/25 05:10 Other Labs: Lab Results x24hrs 03/06/25 03/05/25 Range/Units 05:10 12:17 WBC 4.4 L (4.8-10.8) x10^3/uL RBC 4.72 (4.20-5.40) 10^6/uL Hgb 12.9 (12.0-16.0) g/dL Hct 40.4 (37.0-47.0) % MCV 85.6 (81.0-99.0) fL MCH 27.3 (27.0-31.0) pg MCHC 31.9 L (32.0-36.0) g/dL RDW 15.5 H (12.0-15.0) % Plt Count 200 (130-450) 10^3/uL MPV 11.0 H (7.9-10.8) fL Neut # (Auto) 2.9 (1.5-6.6) 10^3/uL Lymph # (Auto) 0.9 L (1.5-3.5) 10^3/uL [place] # (Auto) 0.6 (0.0-1.0) 10^3/uL Eos # (Auto) 0.0 (0.0-0.7) 10^3/uL Baso # (Auto) 0.1 (0.0-0.1) 10^3/uL Absolute Nucleated RBC 0.00 x10^3/uL Nucleated RBC % 0.0 /100WBC Sodium 139 141 (135-145) mmol/L Potassium 2.9 L 3.3 L (3.5-4.5) mmol/L Chloride 106 109 (101-111) mmol/L Carbon Dioxide 24 21 (21-32) mmol/L Anion Gap 9.0 11.0 (6-13) BUN 15 12 (6-20) mg/dL Creatinine 0.7 0.6 (0.6-1.3) mg/dL Estimated GFR (MDRD) 80 L 95 (>89) Glucose 101 82 (74-104) mg/dL Calcium 8.3 L 8.2 L (8.5-10.3) mg/dL Magnesium 2.1 (1.7-2.3) mg/dL Assessment/Plan Problem List (1) Encephalopathy: Impression: Resolved. Patient presented due to worsening confusion, myalgia, as well as fatigue. She also had a dry cough. Tested positive for COVID-19. At this time, likely the COVID-19 is causing delirium with patient's underlying dementia and cognitive decline. This morning, she is close to her baseline mentation. She is alert and oriented x 1-2, conversing appropriately and is pleasant. Continue strict delirium precautions: Lights on during the day, out of bed for meals, family at bedside if possible. Received Haldol yesterday. Will schedule melatonin tonight to maintain sleep-wake cycles. CT head and CT angiogram were completed, no acute pathology was noted. Due to improvement in mentation, was able to work with patient. Advanced diet from NPO to pureed this A.M. Of note, patient was admitted to [place] for altered mental status which was attributed to a urinary tract infection. On 02/25, MRI was completed at that time which showed no acute intracranial abnormality. Qualifiers: Encephalopathy type: unspecified encephalopathy Qualified Code(s): G 93.40 - Encephalopathy, unspecified (2) COVID-19: Impression: Overnight, patient required 1 to 2 L of oxygen. This was attributed to underlying sleep apnea as this desaturation event was happening only when patient was asleep. Now back on room air. Hold off on Decadron. Will consider remdesivir, but due to limited supplies, we do not have it until 03/06. It is usually effective when given early on in the course, so use deferred. (3) Hypokalemia: Impression: Likely due to decreased P.O. intake. Continue IV and oral replacement. 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 She follows with neurology outpatient. On IVIG every 4 weeks. She also takes baclofen 10 to 40 mg 2-3 times a day as needed, although daughter says she does not need this very often. This is currently held as patient continues to be altered. (5) Weakness: Impression: PT ordered. Patient may need SNF on discharge. (6) History of polymyalgia rheumatica: Impression: Patient follows with rheumatology. She is on prednisone 5 mg daily. Continued. (7) Depression: Impression: Continue duloxetine 30 mg twice daily, per home medication. Qualifiers: Depression Type: unspecified Qualified Code(s): F32.A - Depression, unspecified (8) JASBIR on CPAP: Impression: Continue home CPAP.
--- NOTE | 2025-03-06 13:09 | PT Plan of Care ---
PT Plan of Care Physical Therapy Plan of Care: Diagnosis Diagnosis covid Diagnosis AMS Referring Provider Mago Hood Patient Status Inpatient Chief Complaint Chief Complaint weakness, confusion Onset of Chief Complaint [employer]UCATOR Medical History (Updated 03/06/25 @ 12:33 by Karan Pride MD) JASBIR on CPAP Temporal arteritis Osteoarthritis Balance/ Functional Results Sitting Balance Fair Standing Balance Fair Assessment Assessment Pt is an 84yo F referred for PT eval d/t deconditioning and AMS related to covid. Please see chart for PMH. Pt lives indep and amb without AD as baseline per dtrs report. A&Ox2- 3 with notable decline in cognition over recent months per family report. Cleared for eval by hospitalist. Upon PT eval, pt supine in bed, A&O to self only and agreeable to participate. Oriented to location with cueing, unable to recall date and situation after multimodal cueing. Pleasantly confused and easily cued for mobility. Requires minAx1 overall for transfers. Mild retropulsion and low endurance in static standing, requiring modAx1 and FWW for stand pivot transfer to chair. Given impairments in balance, strength, endurance, and functional indep, pt will benefit from skilled PT in acute setting to progress mobility. When medically clear, PT rec dc to SNF for further rehab as pt is far below baseline and unsafe for in home mobility at this time. Goals Improve bed mobility to: Contact Guard Improve supine to sit to: Contact Guard Improve sit to stand to: Minimal Assist Improve pivot transfer ability Minimal Assist to: Improve sit to supine to: Minimal Assist Improve gait ability to: Min A Assistive Device Used: Front Wheeled Walker Improve Sitting Balance to: Good Improve Standing Balance to: Good PT Plan of Care Frequency 1-2x/day Duration Until discharge Discharge Recommendations Discharge Location [facility] DC Equipment Recommended Front wheeled walker Transport Needs at Discharge Wheelchair van
[2025-03-06] MEDS: MELATONIN 3 MG TABLET PO SCH (20:29)
[2025-03-06] MEDS: OLANZapine 10 MG VIAL IM ONE (23:41)
[2025-03-07 06:39] LABS: HCT - HEMATOCRIT 41.8 % (37.0-47.0); HGB - HEMOGLOBIN 13.5 g/dL (12.0-16.0); MEAN PLATELET VOLUME 10.8 fL (7.9-10.8); NRBC ABSOLUTE COUNT (AUTO) 0.00 x10^3/uL; NUCLEATED RED BLOOD CELLS AUTO 0.0 /100WBC; PLT - PLATELET COUNT 186 10^3/uL (130-450); RED CELL DISTRIBUTION WIDTH 15.6 % (12.0-15.0)
[2025-03-07 06:56] LABS: BUN - BLOOD UREA NITROGEN 18.0 mg/dL (6-20); CARBON DIOXIDE - CO2 24.0 mmol/L (21-32); CREATININE 0.8 mg/dL (0.6-1.3); GFR - MDRD 68.0 (>89)
[2025-03-07] MEDS: POTASSIUM CHLORIDE 20 MEQ TABLET PO ONE (08:55)
[2025-03-07] MEDS ORDERED: REMDESIVIR 100 MG in SODIUM CHLORIDE 0.9% 100ML 100 ML IV SCH (09:00)
--- NOTE | 2025-03-07 09:20 | Speech Therapy Plan of Care ---
DIAGNOSIS Date of Service Date of Service: 03/06/25 Diagnosis: Encephalopathy, unspecified MEDICAL/SURGICAL PAST HISTORY Past History Medical History (Updated 03/06/25 @ 12:33 by Karan Pride MD) JASBIR on CPAP Temporal arteritis Osteoarthritis SPEECH ASSESSMENT Assessment: Mrs. Dickey is an 84-year-old female, referred for HOUSEKEEPING AIDE evaluation due to altered mental status, she tested COVID +. Please see chart for complex PMH. Per her son, Pt has been experiencing worsening dementia. She currently lives alone at home. Initial swallow attempts on 03/05 were deferred due to reduced alertness; reassessment completed today as mentation has improved. Pt was positioned fully upright (initial left lean corrected). PO trials included ice chips 2, thin liquid (tsp 2, cup sips 8), mildly thickened liquid with Miralax 5, applesauce 3, and applesauce with yakov cracker 1. Coughing noted with initial tsp and cup sips of thin liquid, likely due to premature spillage and delayed swallow initiation. Swallow timing and laryngeal elevation improved across trials with no further overt s/s of aspiration. Impression: Mild oropharyngeal dysphagia, likely related to recent AMS and transient swallow discoordination. Plan: Recommend puree diet (IDDSI Level 4) with thin liquids (Level 0) and supervision at meals to ensure upright positioning and slow rate of intake. Continue oral care and monitor tolerance. HOUSEKEEPING AIDE to follow for ongoing management and possible diet advancement. Medical Necessity: Skilled HOUSEKEEPING AIDE intervention is required to ensure safe oral intake and reduce aspiration risk in the context of AMS and mild oropharyngeal dysphagia.
--- NOTE | 2025-03-07 09:31 | PROVIDER PROGRESS NOTE ---
Subjective Subjective Subjective: This morning, patient is doing much better. She is alert and oriented x 1-2, but is conversing appropriately, following commands, and is pleasant. Her daughter and grandson were at bedside, and were updated about plan of care. She has no shortness of breath, no fevers, no chills. PT did work with the patient, and recommend SNF. Will see if we can make patient swing bed status while awaiting her isolation of ten days to be over. Diet: Pureed diet, thin liquids DVT: Heparin Code: DNR Dispo: SNF on discharge Current Medications Current Medications Current Medications: Current Medications Generic Name Dose Route Start Last Admin Trade Name Freq PRN Reason Stop Dose Admin Acetaminophen 650 mg 03/04/25 02:32 03/05/25 20:09 Acetaminophen 325 Mg Tablet PO 650 mg Q4HR PRN Administration Pain 1 to 4, or Fever Hydrocodone Bitart/Acetaminophen 1 tab 03/04/25 02:32 Hydrocod/Acetam 5/325 Mg Tablet PO Q4HR PRN Pain 5 to 7 Atorvastatin Calcium 80 mg 03/05/25 21:00 03/06/25 20:29 Atorvastatin 40 Mg Tablet PO 80 mg QPM DESMOND Administration Diclofenac Sodium 2 gm 03/05/25 17:37 03/06/25 20:36 Diclofenac Sodium 1% Gel 50 Gm Tube TOP 2 gm QID PRN Administration Mild Pain (Level 1-3) Duloxetine HCl 30 mg 03/05/25 21:00 03/07/25 08:56 Duloxetine 30 Mg Capsule PO 30 mg BID DESMOND Administration Heparin Sodium (Porcine) 5,000 unit 03/04/25 09:00 03/07/25 08:56 Heparin 5,000 Unit/Ml Vial SUBQ 5,000 unit BID DESMOND Administration Acetaminophen 1,000 mg in 100 mls @ 400 mls/hr 03/05/25 20:37 Acetaminophen IV Q6HR PRN Moderate Pain (Level 4-6) Levothyroxine Sodium 88 mcg 03/05/25 09:30 03/07/25 06:27 Levothyroxine 88 Mcg Tablet PO 88 mcg QDAC DESMOND Administration Lidocaine 1 patch 03/06/25 09:00 03/07/25 08:56 Lidocaine Patch 4% TOP 1 patch DAILY DESMOND Administration Melatonin 3 mg 03/06/25 21:00 03/06/25 20:29 Melatonin 3 Mg Tablet PO 3 mg QPM DESMOND Administration Pantoprazole Sodium 40 mg 03/05/25 16:00 03/07/25 06:27 Pantoprazole 40 Mg Tablet PO 40 mg BIDAC DESMOND Administration Polyethylene Glycol 17 gm 03/06/25 09:00 03/07/25 08:56 Polyethylene Glycol 3350 17 Gm Packet PO 17 gm DAILY DESMOND Administration Prednisone 5 mg 03/05/25 14:00 03/07/25 08:57 Prednisone 5 Mg Tablet PO 5 mg DAILY DESMOND Administration Sodium Chloride 10 ml 03/04/25 02:32 03/05/25 05:22 Sodium Chloride Flush 0.9% 10 Ml Syringe IVP 10 ml PRN PRN Administration NEEDED PER PROVIDER ORDERS Sodium Chloride 10 ml 03/04/25 09:00 03/07/25 08:57 Sodium Chloride Flush 0.9% 10 Ml Syringe IVP 10 ml 0100,0900,1700 DESOMND Administration Objective Vital Signs/Intake & Output Reviewed Vital Signs: Yes Vital Signs: Vital Signs x48h Temp Pulse Resp BP Pulse Ox 03/07/25 08:09 98.1 F 76 20 132/92 H 96 03/07/25 06:57 60 18 157/108 H 94 03/07/25 05:00 97.0 F L 75 18 160/108 H 96 Intake & Output: Intake & Output 03/04/25 03/05/25 03/06/25 03/07/25 23:59 23:59 23:59 23:59 Intake Total 2138 / 2138 2173 / 2173 1871 / 1871 180 / 180 Output Total 1250 / 1250 3400 / 3400 1470 / 1470 750 / 750 Balance 888 / 888 -1227 / -1227 401 / 401 -570 / -570 Objective General Appearance: positive No acute distress and Alert; negative Anxious Eyes Bilateral: positive Normal inspection, PERRL and EOMI ENT: positive ENT inspection nml, Pharynx nml and No signs of dehydration Neck: positive Nml inspection, Thyroid nml and No JVD Respiratory: positive Chest non-tender, No respiratory distress and Breath sounds nml; negative Wheezes, Rales or Rhonchi Cardiovascular: positive Regular rate & rhythm, No murmur and No gallop; negative Tachycardia or Systolic murmur Abdomen: positive Non-tender, No organomegaly and No distention; negative Guarding or Splenomegaly Back: positive Nml inspection; negative CVA tenderness (R) or CVA tenderness (L) Skin: positive Color nml, No rash, Warm and Dry Extremities: positive Non-tender, Full ROM, Nml appearance and No pedal edema Neurologic/Psychiatric: positive Mood/affect nml and Disoriented to time Lab Results 03/07/25 06:31 03/07/25 06:31 Other Labs: Lab Results x24hrs 03/07/25 03/06/25 Range/Units 06:31 13:32 WBC 4.7 L (4.8-10.8) x10^3/uL RBC 4.88 (4.20-5.40) 10^6/uL Hgb 13.5 (12.0-16.0) g/dL Hct 41.8 (37.0-47.0) % MCV 85.7 (81.0-99.0) fL MCH 27.7 (27.0-31.0) pg MCHC 32.3 (32.0-36.0) g/dL RDW 15.6 H (12.0-15.0) % Plt Count 186 (130-450) 10^3/uL MPV 10.8 (7.9-10.8) fL Neut # (Auto) 3.0 (1.5-6.6) 10^3/uL Lymph # (Auto) 1.0 L (1.5-3.5) 10^3/uL [place] # (Auto) 0.5 (0.0-1.0) 10^3/uL Eos # (Auto) 0.1 (0.0-0.7) 10^3/uL Baso # (Auto) 0.1 (0.0-0.1) 10^3/uL Absolute Nucleated RBC 0.00 x10^3/uL Nucleated RBC % 0.0 /100WBC Sodium 141 (135-145) mmol/L Potassium 3.1 L 3.8 (3.5-4.5) mmol/L Chloride 109 (101-111) mmol/L Carbon Dioxide 24 (21-32) mmol/L Anion Gap 8.0 (6-13) BUN 18 (6-20) mg/dL Creatinine 0.8 (0.6-1.3) mg/dL Estimated GFR (MDRD) 68 L (>89) Glucose 89 (74-104) mg/dL Calcium 9.1 (8.5-10.3) mg/dL Magnesium 2.0 (1.7-2.3) mg/dL Assessment/Plan Problem List (1) Encephalopathy: Impression: Resolved. Patient presented due to worsening confusion, myalgia, as well as fatigue. She also had a dry cough. Tested positive for COVID-19. At this time, likely the COVID-19 is causing delirium with patient's underlying dementia and cognitive decline. This morning, she is close to her baseline mentation. She is alert and oriented x 1-2, conversing appropriately and is pleasant. Continue strict delirium precautions: Lights on during the day, out of bed for meals, family at bedside if possible. Received Zyprexa yesterday. Will schedule melatonin tonight to maintain sleep-wake cycles. CT head and CT angiogram were completed, no acute pathology was noted. Due to improvement in mentation, ST was able to work with patient. Advanced diet from NPO to pureed diet. PT reccomends SNF. Of note, patient was admitted to [place] for altered mental status which was attributed to a urinary tract infection. On 02/25, MRI was completed at that time which showed no acute intracranial abnormality. Qualifiers: Encephalopathy type: unspecified encephalopathy Qualified Code(s): G 93.40 - Encephalopathy, unspecified (2) COVID-19: Impression: Overnight, patient required 1 to 2 L of oxygen. This was attributed to underlying sleep apnea as this desaturation event was happening only when patient was asleep. Now back on room air. Home CPAP present at bedside, continue use during sleeping hours. Hold off on Decadron. Remdesivir use considered but due to limited supplies, there was delay in initiation. It is usually effective when given early on in the course, so use deferred. (3) Hypokalemia: Impression: Likely due to decreased P.O. intake. Continue IV and oral replacement. 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 She follows with neurology outpatient. On IVIG every 4 weeks. She also takes baclofen 10 to 40 mg 2-3 times a day as needed, although daughter says she does not need this very often. This is currently held as patient continues to be altered. (5) Weakness: Impression: PT ordered, SNF reccomended. Social work working on placement. (6) History of polymyalgia rheumatica: Impression: Patient follows with rheumatology. She is on prednisone 5 mg daily. Continued. (7) Depression: Impression: Continue duloxetine 30 mg twice daily, per home medication. Qualifiers: Depression Type: unspecified Qualified Code(s): F32.A - Depression, unspecified (8) JASBIR on CPAP: Impression: Continue home CPAP.
[2025-03-07] MEDS ORDERED: MULTIVITAMIN W/MINERALS TABLET PO SCH (10:00)
[2025-03-07] MEDS ORDERED: METHOTREXATE SODIUM 25 MG/ML IM SCH (11:00)
[2025-03-07] MEDS: CALCIUM CARBONATE CHEW 500 MG TABLET PO SCH (11:01)
[2025-03-07] MEDS: PRENATAL VITAMIN TABLET PO SCH (11:01)
[2025-03-07] MEDS: CHOLECALCIFEROL 25 MCG TABLET PO SCH (11:01)
[2025-03-07] MEDS: PRAMIPEXOLE 0.25 MG TABLET PO SCH (20:43)
[2025-03-08 06:38] LABS: HCT - HEMATOCRIT 40.5 % (37.0-47.0); HGB - HEMOGLOBIN 12.6 g/dL (12.0-16.0); MEAN PLATELET VOLUME 10.7 fL (7.9-10.8); NRBC ABSOLUTE COUNT (AUTO) 0.00 x10^3/uL; NUCLEATED RED BLOOD CELLS AUTO 0.0 /100WBC; PLT - PLATELET COUNT 189 10^3/uL (130-450); RED CELL DISTRIBUTION WIDTH 15.9 % (12.0-15.0)
[2025-03-08 07:02] LABS: BUN - BLOOD UREA NITROGEN 34.0 mg/dL (6-20); CARBON DIOXIDE - CO2 28.0 mmol/L (21-32); CREATININE 1.0 mg/dL (0.6-1.3); GFR - MDRD 53.0 (>89)
--- NOTE | 2025-03-08 09:09 | Discharge Summary ---
Discharge Summary ALLERGIES Allergies Allergy/AdvReac Type Severity Reaction Status Date / Time Penicillins Allergy Rash Verified 03/03/25 19:40 Sulfa (Sulfonamide Allergy Unknown Verified 03/03/25 19:40 Antibiotics) MEDICATIONS Ambulatory Orders Medication Instructions Recorded Confirmed immune globulin(hum),capr(IgG) 10 10 ml IV .monthly 03/04/25 % intravenous solution (Gamunex) levothyroxine 88 mcg tablet 88 mcg PO DAILY 12/25/13 1 prednisone 5 mg tablet 5 mg PO DAILY 12/25/1303/07 Multi vitamin 1 tab PO DAILY 04/18/2412/20 duloxetine 30 mg capsule,delayed 30 mg PO BID 08/13/24 03/04/25 release lansoprazole 30 mg capsule,delayed 30 mg PO BID 03/04/25 release rosuvastatin 40 mg tablet 40 mg PO DAILY 08/13/2412/20 baclofen 10 mg tablet 10 - 20 mg PO TID PRN muscle spasm 03/08/25 03/08/25 PHYSICAL EXAM AT DISCHARGE Vital Signs: Vital Signs x48h Temp Pulse Resp BP Pulse Ox 03/08/25 08:05 97.9 F 60 16 149/81 H 97 03/08/25 06:00 97.3 F L 61 15 161/91 H 94 LABS 03/08/25 06:30 03/08/25 06:30 Discharge Plan Discharge Condition: Stable Prescriptions: No Action prednisone 5 MG tablet 5 mg PO DAILY levothyroxine 88 MCG tablet 88 mcg PO DAILY Gamunex 10 ML solution 10 ml IV .monthly Patient Comments: recived inj yesterday every 3 months Multi vitamin 1 tab PO DAILY lansoprazole 30 mg capsule,delayed release(DR/EC) 30 mg PO BID Patient Comments: take 1 capsule by mouth twice a day 30 MINUTES PRIOR TO MEALS rosuvastatin 40 mg tablet 40 mg PO DAILY duloxetine 30 mg capsule,delayed release(DR/EC) 30 mg PO BID Patient Comments: take 1 capsule by mouth twice a day baclofen 10 mg tablet 10 - 20 mg PO TID PRN (Reason: muscle spasm) Print Language: Micronesian Stand Alone Forms: PCP List Follow-up Care: Khadar Cortez MD [Primary Care Provider, Rheumatology]
--- NOTE | 2025-03-08 12:09 | PROVIDER PROGRESS NOTE ---
Subjective Subjective Subjective: This morning, patient is doing much better. She is alert and oriented x 1-2, but is conversing appropriately, following commands, and is pleasant. She is medically cleared for discharge. Awaiting SNF bed vs. Swing bed. Diet: Pureed diet, thin liquids DVT: Lovenox Code: DNR Dispo: SNF on discharge Current Medications Current Medications Current Medications: Current Medications Generic Name Dose Route Start Last Admin Trade Name Freq PRN Reason Stop Dose Admin Acetaminophen 650 mg 03/04/25 02:32 03/08/25 11:25 Acetaminophen 325 Mg Tablet PO 650 mg Q4HR PRN Administration Pain 1 to 4, or Fever Hydrocodone Bitart/Acetaminophen 1 tab 03/04/25 02:32 Hydrocod/Acetam 5/325 Mg Tablet PO Q4HR PRN Pain 5 to 7 Atorvastatin Calcium 80 mg 03/05/25 21:00 03/07/25 20:43 Atorvastatin 40 Mg Tablet PO 80 mg QPM DESMOND Administration Calcium Carbonate/Glycine 500 mg 03/07/25 10:00 03/08/25 09:06 Calcium Carbonate Chew 500 Mg Tablet PO 500 mg DAILY DESMOND Administration Cholecalciferol 50 mcg 03/07/25 10:00 03/08/25 09:06 Cholecalciferol 25 Mcg Tablet PO 50 mcg DAILY DESMOND Administration Diclofenac Sodium 2 gm 03/05/25 17:37 03/08/25 11:26 Diclofenac Sodium 1% Gel 50 Gm Tube TOP 2 gm QID PRN Administration Mild Pain (Level 1-3) Duloxetine HCl 30 mg 03/05/25 21:00 03/08/25 09:06 Duloxetine 30 Mg Capsule PO 30 mg BID DESMOND Administration Heparin Sodium (Porcine) 5,000 unit 03/04/25 09:00 03/08/25 09:13 Heparin 5,000 Unit/Ml Vial SUBQ 5,000 unit BID DESMOND Administration Acetaminophen 1,000 mg in 100 mls @ 400 mls/hr 03/05/25 20:37 Acetaminophen IV Q6HR PRN Moderate Pain (Level 4-6) Levothyroxine Sodium 88 mcg 03/05/25 09:30 03/08/25 06:27 Levothyroxine 88 Mcg Tablet PO 88 mcg QDAC DESMOND Administration Lidocaine 1 patch 03/06/25 09:00 03/08/25 09:14 Lidocaine Patch 4% TOP 1 patch DAILY DESMOND Administration Melatonin 3 mg 03/06/25 21:00 03/07/25 20:43 Melatonin 3 Mg Tablet PO 3 mg QPM DESMOND Administration Pantoprazole Sodium 40 mg 03/05/25 16:00 03/08/25 06:27 Pantoprazole 40 Mg Tablet PO 40 mg BIDAC DESMOND Administration Polyethylene Glycol 17 gm 03/06/25 09:00 03/08/25 09:14 Polyethylene Glycol 3350 17 Gm Packet PO 17 gm DAILY DESMOND Administration Pramipexole Dihydrochloride 0.5 mg 03/07/25 21:00 03/07/25 20:43 Pramipexole 0.25 Mg Tablet PO 0.5 mg QPM DESMOND Administration Prednisone 5 mg 03/05/25 14:00 03/08/25 09:14 Prednisone 5 Mg Tablet PO 5 mg DAILY DESMOND Administration Multivit/Folic Acid/Iron 1 tab 03/07/25 10:00 03/08/25 09:06 Vitamin Tablet PO 1 tab DAILYWM DESMOND Administration Sodium Chloride 10 ml 03/04/25 02:32 03/05/25 05:22 Sodium Chloride Flush 0.9% 10 Ml Syringe IVP 10 ml PRN PRN Administration NEEDED PER PROVIDER ORDERS Sodium Chloride 10 ml 03/04/25 09:00 03/08/25 09:14 Sodium Chloride Flush 0.9% 10 Ml Syringe IVP 10 ml 0100,0900,1700 DESMOND Administration Objective Vital Signs/Intake & Output Reviewed Vital Signs: Yes Vital Signs: Vital Signs x48h Temp Pulse Resp BP Pulse Ox 03/08/25 08:05 97.9 F 60 16 149/81 H 97 03/08/25 06:00 97.3 F L 61 15 161/91 H 94 Intake & Output: Intake & Output 03/05/25 03/06/25 03/07/25 03/08/25 23:59 23:59 23:59 23:59 Intake Total 2173 / 2173 1871 / 1871 400 / 400 250 / 250 Output Total 3400 / 3400 1470 / 1470 1090 / 1090 245 / 245 Balance -1227 / -1227 401 / 401 -690 / -690 5 / 5 Objective General Appearance: positive No acute distress and Alert; negative Anxious Eyes Bilateral: positive Normal inspection, PERRL and EOMI ENT: positive ENT inspection nml, Pharynx nml and No signs of dehydration Neck: positive Nml inspection, Thyroid nml and No JVD Respiratory: positive Chest non-tender, No respiratory distress and Breath sounds nml; negative Wheezes, Rales or Rhonchi Cardiovascular: positive Regular rate & rhythm, No murmur and No gallop; negative Tachycardia or Systolic murmur Abdomen: positive Non-tender, No organomegaly and No distention; negative Guarding or Splenomegaly Back: positive Nml inspection; negative CVA tenderness (R) or CVA tenderness (L) Skin: positive Color nml, No rash, Warm and Dry Extremities: positive Non-tender, Full ROM, Nml appearance and No pedal edema Neurologic/Psychiatric: positive Mood/affect nml and Disoriented to time Lab Results 03/08/25 06:30 03/08/25 06:30 Other Labs: Lab Results x24hrs 03/08/25 Range/Units 06:30 WBC 3.9 L (4.8-10.8) x10^3/uL RBC 4.59 (4.20-5.40) 10^6/uL Hgb 12.6 (12.0-16.0) g/dL Hct 40.5 (37.0-47.0) % MCV 88.2 (81.0-99.0) fL MCH 27.5 (27.0-31.0) pg MCHC 31.1 L (32.0-36.0) g/dL RDW 15.9 H (12.0-15.0) % Plt Count 189 (130-450) 10^3/uL MPV 10.7 (7.9-10.8) fL Neut # (Auto) 2.1 (1.5-6.6) 10^3/uL Lymph # (Auto) 1.1 L (1.5-3.5) 10^3/uL [place] # (Auto) 0.5 (0.0-1.0) 10^3/uL Eos # (Auto) 0.2 (0.0-0.7) 10^3/uL Baso # (Auto) 0.1 (0.0-0.1) 10^3/uL Absolute Nucleated RBC 0.00 x10^3/uL Nucleated RBC % 0.0 /100WBC Sodium 141 (135-145) mmol/L Potassium 4.1 (3.5-4.5) mmol/L Chloride 108 (101-111) mmol/L Carbon Dioxide 28 (21-32) mmol/L Anion Gap 5.0 L (6-13) BUN 34 H (6-20) mg/dL Creatinine 1.0 (0.6-1.3) mg/dL Estimated GFR (MDRD) 53 L (>89) Glucose 90 (74-104) mg/dL Calcium 9.4 (8.5-10.3) mg/dL Magnesium 2.1 (1.7-2.3) mg/dL Assessment/Plan Problem List (1) Encephalopathy: Impression: Resolved. Patient presented due to worsening confusion, myalgia, as well as fatigue. She also had a dry cough. Tested positive for COVID-19. At this time, likely the COVID-19 is causing delirium with patient's underlying dementia and cognitive decline. This morning, she is close to her baseline mentation. She is alert and oriented x 1-2, conversing appropriately and is pleasant. Continue strict delirium precautions: Lights on during the day, out of bed for meals, family at bedside if possible. Will schedule melatonin tonight to maintain sleep-wake cycles. CT head and CT angiogram were completed, no acute pathology was noted. Due to improvement in mentation, ST was able to work with patient. Advanced diet from NPO to pureed diet. PT reccomends SNF. Of note, patient was admitted to [place] for altered mental status which was attributed to a urinary tract infection. On 02/25, MRI was completed at that time which showed no acute intracranial abnormality. Qualifiers: Encephalopathy type: unspecified encephalopathy Qualified Code(s): G 93.40 - Encephalopathy, unspecified (2) COVID-19: Impression: Overnight, patient required 1 to 2 L of oxygen. This was attributed to underlying sleep apnea as this desaturation event was happening only when patient was asleep. Now back on room air. Home CPAP present at bedside, continue use during sleeping hours. Hold off on Decadron. Remdesivir use considered but due to limited supplies, there was delay in initiation. It is usually effective when given early on in the course, so use deferred. (3) Hypokalemia: Impression: Resolved. Likely due to decreased P.O. intake. 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 She follows with neurology outpatient. On IVIG every 4 weeks. She also takes baclofen 10 to 40 mg 2-3 times a day as needed, although daughter says she does not need this very often. This is currently held as patient continues to be altered. (5) Weakness: Impression: PT ordered, SNF recommended. Social work working on placement. Medically cleared for discharge. (6) History of polymyalgia rheumatica: Impression: Patient follows with rheumatology. She is on prednisone 5 mg daily. Continued. (7) Depression: Impression: Continue duloxetine 30 mg twice daily, per home medication. Qualifiers: Depression Type: unspecified Qualified Code(s): F32.A - Depression, unspecified (8) JASBIR on CPAP: Impression: Continue home CPAP.
[2025-03-09 05:30] LABS: HCT - HEMATOCRIT 36.8 % (37.0-47.0); HGB - HEMOGLOBIN 12.0 g/dL (12.0-16.0); MEAN PLATELET VOLUME 11.0 fL (7.9-10.8); PLT - PLATELET COUNT 186.0 10^3/uL (130-450); RED CELL DISTRIBUTION WIDTH 15.6 % (12.0-15.0)
[2025-03-09 05:44] LABS: BUN - BLOOD UREA NITROGEN 37.0 mg/dL (6-20); CARBON DIOXIDE - CO2 27.0 mmol/L (21-32); CREATININE 0.8 mg/dL (0.6-1.3); GFR - MDRD 68.0 (>89)
[2025-03-09] MEDS: ENOXAPARIN 40 MG/0.4 ML SYRINGE SUBQ SCH (08:24)
--- NOTE | 2025-03-09 12:57 | PROVIDER PROGRESS NOTE ---
Subjective Subjective Subjective: This morning, patient is doing much better. She is alert and oriented x 1-2, but is conversing appropriately, following commands, and is pleasant. She is medically cleared for discharge. Awaiting SNF bed vs. Swing bed. Diet: Pureed diet, thin liquids DVT: Lovenox Code: DNR Dispo: SNF on discharge Current Medications Current Medications Current Medications: Current Medications Generic Name Dose Route Start Last Admin Trade Name Freq PRN Reason Stop Dose Admin Acetaminophen 650 mg 03/04/25 02:32 03/09/25 08:12 Acetaminophen 325 Mg Tablet PO 650 mg Q4HR PRN Administration Pain 1 to 4, or Fever Hydrocodone Bitart/Acetaminophen 1 tab 03/04/25 02:32 Hydrocod/Acetam 5/325 Mg Tablet PO Q4HR PRN Pain 5 to 7 Atorvastatin Calcium 80 mg 03/05/25 21:00 03/08/25 20:43 Atorvastatin 40 Mg Tablet PO 80 mg QPM DESMOND Administration Calcium Carbonate/Glycine 500 mg 03/07/25 10:00 03/09/25 08:12 Calcium Carbonate Chew 500 Mg Tablet PO 500 mg DAILY DESMOND Administration Cholecalciferol 50 mcg 03/07/25 10:00 03/09/25 08:12 Cholecalciferol 25 Mcg Tablet PO 50 mcg DAILY DESMOND Administration Diclofenac Sodium 2 gm 03/05/25 17:37 03/09/25 07:48 Diclofenac Sodium 1% Gel 50 Gm Tube TOP 2 gm QID PRN Administration Mild Pain (Level 1-3) Duloxetine HCl 30 mg 03/05/25 21:00 03/09/25 08:12 Duloxetine 30 Mg Capsule PO 30 mg BID DESMOND Administration Enoxaparin Sodium 40 mg 03/09/25 09:00 03/09/25 08:24 Enoxaparin 40 Mg/0.4 Ml Syringe SUBQ 40 mg DAILY DESMOND Administration Acetaminophen 1,000 mg in 100 mls @ 400 mls/hr 03/05/25 20:37 Acetaminophen IV Q6HR PRN Moderate Pain (Level 4-6) Levothyroxine Sodium 88 mcg 03/05/25 09:30 03/09/25 06:26 Levothyroxine 88 Mcg Tablet PO 88 mcg QDAC DESMOND Administration Lidocaine 1 patch 03/06/25 09:00 03/09/25 08:13 Lidocaine Patch 4% TOP 1 patch DAILY DESMOND Administration Melatonin 3 mg 03/06/25 21:00 03/08/25 20:43 Melatonin 3 Mg Tablet PO 3 mg QPM DESMOND Administration Pantoprazole Sodium 40 mg 03/05/25 16:00 03/09/25 06:26 Pantoprazole 40 Mg Tablet PO 40 mg BIDAC DESMOND Administration Polyethylene Glycol 17 gm 03/06/25 09:00 03/09/25 08:13 Polyethylene Glycol 3350 17 Gm Packet PO 17 gm DAILY DESMOND Administration Pramipexole Dihydrochloride 0.5 mg 03/07/25 21:00 03/08/25 20:43 Pramipexole 0.25 Mg Tablet PO 0.5 mg QPM DESMOND Administration Prednisone 5 mg 03/05/25 14:00 03/09/25 08:13 Prednisone 5 Mg Tablet PO 5 mg DAILY DESMOND Administration Multivit/Folic Acid/Iron 1 tab 03/07/25 10:00 03/09/25 08:13 Vitamin Tablet PO 1 tab DAILYWM DESMOND Administration Sodium Chloride 10 ml 03/04/25 02:32 03/08/25 20:44 Sodium Chloride Flush 0.9% 10 Ml Syringe IVP 10 ml PRN PRN Administration NEEDED PER PROVIDER ORDERS Sodium Chloride 10 ml 03/04/25 09:00 03/09/25 08:14 Sodium Chloride Flush 0.9% 10 Ml Syringe IVP 10 ml 0100,0900,1700 DESMOND Administration Objective Vital Signs/Intake & Output Reviewed Vital Signs: Yes Vital Signs: Vital Signs x48h Temp Pulse Resp BP Pulse Ox 03/08/25 08:05 97.9 F 60 16 149/81 H 97 03/08/25 06:00 97.3 F L 61 15 161/91 H 94 Intake & Output: Intake & Output 03/06/25 03/07/25 03/08/25 03/09/25 23:59 23:59 23:59 23:59 Intake Total 1871 / 1871 400 / 400 540 / 540 420 / 420 Output Total 1470 / 1470 1090 / 1090 260 / 260 Balance 401 / 401 -690 / -690 280 / 280 420 / 420 Objective General Appearance: positive No acute distress and Alert; negative Anxious Eyes Bilateral: positive Normal inspection, PERRL and EOMI ENT: positive ENT inspection nml, Pharynx nml and No signs of dehydration Neck: positive Nml inspection, Thyroid nml and No JVD Respiratory: positive Chest non-tender, No respiratory distress and Breath sounds nml; negative Wheezes, Rales or Rhonchi Cardiovascular: positive Regular rate & rhythm, No murmur and No gallop; negative Tachycardia or Systolic murmur Abdomen: positive Non-tender, No organomegaly and No distention; negative Guarding or Splenomegaly Back: positive Nml inspection; negative CVA tenderness (R) or CVA tenderness (L) Skin: positive Color nml, No rash, Warm and Dry Extremities: positive Non-tender, Full ROM, Nml appearance and No pedal edema Neurologic/Psychiatric: positive Mood/affect nml and Disoriented to time Lab Results 03/09/25 04:56 03/09/25 04:56 Other Labs: Lab Results x24hrs 03/09/25 Range/Units 04:56 WBC 4.7 L (4.8-10.8) x10^3/uL RBC 4.29 (4.20-5.40) 10^6/uL Hgb 12.0 (12.0-16.0) g/dL Hct 36.8 L (37.0-47.0) % MCV 85.8 (81.0-99.0) fL MCH 28.0 (27.0-31.0) pg MCHC 32.6 (32.0-36.0) g/dL RDW 15.6 H (12.0-15.0) % Plt Count 186 (130-450) 10^3/uL MPV 11.0 H (7.9-10.8) fL Sodium 137 (135-145) mmol/L Potassium 3.5 (3.5-4.5) mmol/L Chloride 104 (101-111) mmol/L Carbon Dioxide 27 (21-32) mmol/L Anion Gap 6.0 (6-13) BUN 37 H (6-20) mg/dL Creatinine 0.8 (0.6-1.3) mg/dL Estimated GFR (MDRD) 68 L (>89) Glucose 93 (74-104) mg/dL Calcium 9.3 (8.5-10.3) mg/dL Magnesium 1.8 (1.7-2.3) mg/dL Assessment/Plan Problem List (1) Encephalopathy: Impression: Resolved. Patient presented due to worsening confusion, myalgia, as well as fatigue. She also had a dry cough. Tested positive for COVID-19. At this time, likely the COVID-19 is causing delirium with patient's underlying dementia and cognitive decline. This morning, she is close to her baseline mentation. She is alert and oriented x 1-2, conversing appropriately and is pleasant. Continue strict delirium precautions: Lights on during the day, out of bed for meals, family at bedside if possible. Will schedule melatonin tonight to maintain sleep-wake cycles. CT head and CT angiogram were completed, no acute pathology was noted. Due to improvement in mentation, ST was able to work with patient. Advanced diet from NPO to pureed diet. PT reccomends SNF. Of note, patient was admitted to [facility] for altered mental status which was attributed to a urinary tract infection. On 02/25, MRI was completed at that time which showed no acute intracranial abnormality. Qualifiers: Encephalopathy type: unspecified encephalopathy Qualified Code(s): G 93.40 - Encephalopathy, unspecified (2) COVID-19: Impression: Overnight, patient required 1 to 2 L of oxygen. This was attributed to underlying sleep apnea as this desaturation event was happening only when patient was asleep. Now back on room air. Home CPAP present at bedside, continue use during sleeping hours. Hold off on Decadron. Remdesivir use considered but due to limited supplies, there was delay in initiation. It is usually effective when given early on in the course, so use deferred. (3) Hypokalemia: Impression: Resolved. Likely due to decreased P.O. intake. 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 She follows with neurology outpatient. On IVIG every 4 weeks. She also takes baclofen 10 to 40 mg 2-3 times a day as needed, although daughter says she does not need this very often. This is currently held as patient continues to be altered. (5) Weakness: Impression: PT ordered, SNF recommended. Social work working on placement. Medically cleared for discharge. (6) History of polymyalgia rheumatica: Impression: Patient follows with rheumatology. She is on prednisone 5 mg daily. Continued. (7) Depression: Impression: Continue duloxetine 30 mg twice daily, per home medication. Qualifiers: Depression Type: unspecified Qualified Code(s): F32.A - Depression, unspecified (8) JASBIR on CPAP: Impression: Continue home CPAP.
--- NOTE | 2025-03-10 09:39 | PROVIDER PROGRESS NOTE ---
Subjective Subjective Subjective: Patient is a 84-year-old female with a history of progressive cognitive decline who presented for altered mentation, delirium. She tested positive for COVID, and her delirium was attributed to this. CT head, CT angiogram were negative. She has not required oxygen during her stay, her vitals and her lab work has been stable. PT did work with her, and recommended SNF. Patient continues to do well. She is alert and oriented x 1-2, but is conversing appropriately, following commands, and is pleasant. Up in bed for all her meals. She is medically cleared for discharge. Awaiting SNF bed vs. Swing bed. Diet: Advanced to soft foods today, thin liquids DVT: Lovenox Code: DNR Dispo: SNF on discharge Current Medications Current Medications Current Medications: Current Medications Generic Name Dose Route Start Last Admin Trade Name Freq PRN Reason Stop Dose Admin Acetaminophen 650 mg 03/04/25 02:32 03/09/25 20:21 Acetaminophen 325 Mg Tablet PO 650 mg Q4HR PRN Administration Pain 1 to 4, or Fever Hydrocodone Bitart/Acetaminophen 1 tab 03/04/25 02:32 Hydrocod/Acetam 5/325 Mg Tablet PO Q4HR PRN Pain 5 to 7 Atorvastatin Calcium 80 mg 03/05/25 21:00 03/09/25 20:21 Atorvastatin 40 Mg Tablet PO 80 mg QPM DESMOND Administration Calcium Carbonate/Glycine 500 mg 03/07/25 10:00 03/10/25 08:36 Calcium Carbonate Chew 500 Mg Tablet PO 500 mg DAILY DESMOND Administration Cholecalciferol 50 mcg 03/07/25 10:00 03/10/25 08:36 Cholecalciferol 25 Mcg Tablet PO 50 mcg DAILY DESMOND Administration Diclofenac Sodium 2 gm 03/05/25 17:37 03/09/25 20:22 Diclofenac Sodium 1% Gel 50 Gm Tube TOP 2 gm QID PRN Administration Mild Pain (Level 1-3) Duloxetine HCl 30 mg 03/05/25 21:00 03/10/25 08:36 Duloxetine 30 Mg Capsule PO 30 mg BID DESMOND Administration Enoxaparin Sodium 40 mg 03/09/25 09:00 03/10/25 08:35 Enoxaparin 40 Mg/0.4 Ml Syringe SUBQ 40 mg DAILY DESMOND Administration Acetaminophen 1,000 mg in 100 mls @ 400 mls/hr 03/05/25 20:37 Acetaminophen IV Q6HR PRN Moderate Pain (Level 4-6) Levothyroxine Sodium 88 mcg 03/05/25 09:30 03/10/25 06:48 Levothyroxine 88 Mcg Tablet PO 88 mcg QDAC DESMOND Administration Lidocaine 1 patch 03/06/25 09:00 03/10/25 08:36 Lidocaine Patch 4% TOP 1 patch DAILY DESMOND Administration Melatonin 3 mg 03/06/25 21:00 03/09/25 20:22 Melatonin 3 Mg Tablet PO 3 mg QPM DESMOND Administration Pantoprazole Sodium 40 mg 03/05/25 16:00 03/10/25 06:48 Pantoprazole 40 Mg Tablet PO 40 mg BIDAC DESMOND Administration Polyethylene Glycol 17 gm 03/06/25 09:00 03/10/25 08:35 Polyethylene Glycol 3350 17 Gm Packet PO 17 gm DAILY DESMOND Administration Pramipexole Dihydrochloride 0.5 mg 03/07/25 21:00 03/09/25 20:21 Pramipexole 0.25 Mg Tablet PO 0.5 mg QPM DESMOND Administration Prednisone 5 mg 03/05/25 14:00 03/10/25 08:35 Prednisone 5 Mg Tablet PO 5 mg DAILY DESMOND Administration Multivit/Folic Acid/Iron 1 tab 03/07/25 10:00 03/10/25 08:36 Vitamin Tablet PO 1 tab DAILYWM DESMOND Administration Sodium Chloride 10 ml 03/04/25 02:32 03/08/25 20:44 Sodium Chloride Flush 0.9% 10 Ml Syringe IVP 10 ml PRN PRN Administration NEEDED PER PROVIDER ORDERS Sodium Chloride 10 ml 03/04/25 09:00 03/10/25 08:36 Sodium Chloride Flush 0.9% 10 Ml Syringe IVP 10 ml 0100,0900,1700 DESMOND Administration Objective Vital Signs/Intake & Output Reviewed Vital Signs: Yes Vital Signs: Vital Signs x48h Temp Pulse Resp BP Pulse Ox 03/10/25 09:17 97.9 F 73 18 150/86 H 95 Intake & Output: Intake & Output 03/07/25 03/08/25 03/09/25 03/10/25 23:59 23:59 23:59 23:59 Intake Total 400 / 400 540 / 540 1018 / 1018 Output Total 1090 / 1090 260 / 260 350 / 350 300 / 300 Balance -690 / -690 280 / 280 668 / 668 -300 / -300 Objective General Appearance: positive No acute distress and Alert; negative Anxious Eyes Bilateral: positive Normal inspection, PERRL and EOMI ENT: positive ENT inspection nml, Pharynx nml and No signs of dehydration Neck: positive Nml inspection, Thyroid nml and No JVD Respiratory: positive Chest non-tender, No respiratory distress and Breath sounds nml; negative Wheezes, Rales or Rhonchi Cardiovascular: positive Regular rate & rhythm, No murmur and No gallop; negative Tachycardia or Systolic murmur Abdomen: positive Non-tender, No organomegaly and No distention; negative Guarding or Splenomegaly Back: positive Nml inspection; negative CVA tenderness (R) or CVA tenderness (L) Skin: positive Color nml, No rash, Warm and Dry Extremities: positive Non-tender, Full ROM, Nml appearance and No pedal edema Neurologic/Psychiatric: positive Mood/affect nml and Disoriented to time Lab Results 03/09/25 04:56 03/09/25 04:56 Other Labs: Lab Results x24hrs 03/09/25 Range/Units 04:56 WBC 4.7 L (4.8-10.8) x10^3/uL RBC 4.29 (4.20-5.40) 10^6/uL Hgb 12.0 (12.0-16.0) g/dL Hct 36.8 L (37.0-47.0) % MCV 85.8 (81.0-99.0) fL MCH 28.0 (27.0-31.0) pg MCHC 32.6 (32.0-36.0) g/dL RDW 15.6 H (12.0-15.0) % Plt Count 186 (130-450) 10^3/uL MPV 11.0 H (7.9-10.8) fL Sodium 137 (135-145) mmol/L Potassium 3.5 (3.5-4.5) mmol/L Chloride 104 (101-111) mmol/L Carbon Dioxide 27 (21-32) mmol/L Anion Gap 6.0 (6-13) BUN 37 H (6-20) mg/dL Creatinine 0.8 (0.6-1.3) mg/dL Estimated GFR (MDRD) 68 L (>89) Glucose 93 (74-104) mg/dL Calcium 9.3 (8.5-10.3) mg/dL Magnesium 1.8 (1.7-2.3) mg/dL Assessment/Plan Problem List (1) Encephalopathy: Impression: Resolved. Patient presented due to worsening confusion, myalgia, as well as fatigue. She also had a dry cough. Tested positive for COVID-19. At this time, likely the COVID-19 is causing delirium with patient's underlying dementia and cognitive decline. This morning, she is close to her baseline mentation. She is alert and oriented x 1-2, conversing appropriately and is pleasant. Continue strict delirium precautions: Lights on during the day, out of bed for meals, family at bedside if possible. Will schedule melatonin to maintain sleep- wake cycles. CT head and CT angiogram were completed, no acute pathology was noted. Due to improvement in mentation, ST was able to work with patient. Advanced diet from NPO to pureed diet to soft diet today. PT reccomends SNF. Of note, patient was admitted to [facility] for altered mental status which was attributed to a urinary tract infection. On 02/25, MRI was completed at that time which showed no acute intracranial abnormality. Qualifiers: Encephalopathy type: unspecified encephalopathy Qualified Code(s): G 93.40 - Encephalopathy, unspecified (2) COVID-19: Impression: Hold off on Decadron as patient had no true de-saturations. Remdesivir use considered but due to limited supplies, there was delay in initiation. It is usually effective when given early on in the course, so use deferred. (3) Hypokalemia: Impression: Resolved. Likely due to decreased P.O. intake. 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 She follows with neurology outpatient. On IVIG every 4 weeks. She also takes baclofen 10 to 40 mg 2-3 times a day as needed, although daughter says she does not need this very often. This is currently held as patient continues to be altered. (5) Weakness: Impression: PT ordered, SNF recommended. Social work working on placement. Medically cleared for discharge. (6) History of polymyalgia rheumatica: Impression: Patient follows with rheumatology. She is on prednisone 5 mg daily. Continued. (7) Depression: Impression: Continue duloxetine 30 mg twice daily, per home medication. Qualifiers: Depression Type: unspecified Qualified Code(s): F32.A - Depression, unspecified (8) JASBIR on CPAP: Impression: Continue home CPAP.
--- NOTE | 2025-03-10 17:15 | Discharge Summary ---
"Discharge Summary Admit Date: 03/04/25 Discharge Date: 03/11/25 Discharging Provider: Dr. Karan Pride Primary Care Provider: Dr. Khadar Cortez Code Status: Do Not Attempt Resuscitation Discharge Facility Name: [facility] DIAGNOSES Discharge Diagnoses with Status of Each Condition: Acute metabolic encephalopathyresolved. COVID-19 likely caused delirium with patient's underlying dementia and cognitive decline. Now close to her baseline mentation. She is alert and oriented x 1-2, conversing appropriately and is pleasant. Continue strict delirium precautions: Lights on during the day, out of bed for meals, family at bedside if possible. Will schedule melatonin to maintain sleep-wake cycles. CT head and CT angiogram were completed, no acute pathology was noted. Of note, patient was admitted to [facility] for altered mental status which was attributed to a urinary tract infection. On 02/25, MRI was completed at that time which showed no acute intracranial abnormality. COVID-19patient largely asymptomatic except for delirium as stated above. Did not receive Decadron or remdesivir, improving daily. Hypokalemiaresolved, likely due to decreased p.o. intake. Stiff man syndromecontinue outpatient neurology follow-up. WeaknessSNF was recommended by physical therapy. Patient is discharged to swing bed. Ongoing rehab. History of polymyalgia rheumaticacontinue daily prednisone, 5 mg. Depressioncontinue duloxetine. JASBIR on CPAPcontinue home CPAP at night. HPI History of Present Illness: Per Dr. Hood: Patient is 84 y/o F with prior hx of Hypothyroidism, Stiff person syndrome, hx of Polymyalgia rheumatica and history of chronic low dose steroid use prednisone 5 mg daily, receives IVIG monthly , is brought to hospital from home. 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 Since yesterday patient started having confusion and worsening myalgia and severe fatigue where patient appeared non tired and no energy to ambulate, yesterday patient started dry cough and runny nose, as per daughter some family members are sick in home but not tested for covid . in ER patient had work up including CT head and Neck, labs and Swab for viral etiology, patient is found to have COVID-19 + infection, Hospitalist team is asked to evaluate for admission considering severe fatigue and lethargy. Patient was seen at [facility] and discharged on 02/28/2025 after 3 day hospitalization and treated for UTI with IV ceftriaxone and Urine culture at outside hospital was not consistent with organism but it was mixed shandra, as per daughter patient started feeling better until yesterday and started having decline with symptoms and mental status changes. CONSULTS | PROCEDURES Procedures: Chest x-ray, head CT, CT angiography HOSPITAL COURSE Hospital Course: Patient is a 84-year-old female with a history of stiff person syndrome, polymyalgia rheumatica, recent cognitive decline with likely dementia who presented for altered mental status. Patient was confused and combative. Head CT, CT angiography of the head and neck was completed, did not show any acute abnormalities. Lab work was all within normal limits. She did test positive for COVID-19. During her stay, she did not require oxygen, and had mild to no respiratory complaints. However, it was likely the COVID that caused her delirium in the setting of her progressive cognitive decline. She recovered quickly, and is now back at her baseline mental status. Her diet was advanced as her mentation improved. She will need physical rehabilitation to increase her strength. Her daughter and son are very involved in her care - they are looking into [facility] for her to go to after rehab, as she currently lives alone. Patient is discharged to a swing bed on 03/11. Will continue ongoing rehab. ALLERGIES Allergies Allergy/AdvReac Type Severity Reaction Status Date / Time Penicillins Allergy Rash Verified 03/03/25 19:40 Sulfa (Sulfonamide Allergy Unknown Verified 03/03/25 19:40 Antibiotics) MEDICATIONS Ambulatory Orders Medication Instructions Recorded Confirmed immune globulin(hum),capr(IgG) 10 10 ml IV .monthly 03/04/25 % intravenous solution (Gamunex) levothyroxine 88 mcg tablet 88 mcg PO DAILY 12/25/13 1 prednisone 5 mg tablet 5 mg PO DAILY 12/25/1303/07 Multi vitamin 1 tab PO DAILY 04/18/2412/20 duloxetine 30 mg capsule,delayed 30 mg PO BID 08/13/24 03/04/25 release lansoprazole 30 mg capsule,delayed 30 mg PO BID 03/04/25 release rosuvastatin 40 mg tablet 40 mg PO DAILY 08/13/24 10/12/20 baclofen 10 mg tablet 10 - 20 mg PO TID PRN muscle spasm 03/08/25 03/08/25 PHYSICAL EXAM AT DISCHARGE Vital Signs: Vital Signs x48h Temp Pulse Resp BP Pulse Ox 03/11/25 08:30 36.4 C L 63 18 151/92 H 97 General Appearance: positive No acute distress and Alert; negative Anxious Eyes Bilateral: positive Normal inspection, PERRL and EOMI ENT: positive ENT inspection nml, Pharynx nml and No signs of dehydration Neck: positive Nml inspection, Thyroid nml and No JVD Respiratory: positive Chest non-tender, No respiratory distress and Breath sounds nml; negative Wheezes, Rales or Rhonchi Cardiovascular: positive Regular rate & rhythm, No murmur and No gallop; negative Tachycardia or Systolic murmur Abdomen: positive Non-tender, No organomegaly and No distention; negative Guarding or Splenomegaly Back: positive Nml inspection; negative CVA tenderness (R) or CVA tenderness (L) Skin: positive Color nml, No rash, Warm and Dry Extremities: positive Non-tender, Full ROM, Nml appearance and No pedal edema Neurologic/Psychiatric: positive Mood/affect nml and Disoriented to time LABS 03/09/25 04:56 03/09/25 04:56 DIAGNOSTIC IMAGING Diagnostic Imaging Results: Final report reviewed FOLLOW UP Follow Up: Follow up PCP. TIME SPENT Time Spent in Discharge (Minutes): 35 Discharge Plan Discharge Patient Disposition: 61 Swing Bed DC/Xfer Condition: Stable Medically Cleared Date:: 03/08/25 Health Concerns: You presented with sudden changes in your mental status. You were quite confused when you first got here, and weak as well. We got CT scans of your brain which showed no acute changes, including any new strokes or bleeds. You did test positive for COVID, which can make you more confused, which is likely what happened. You were also weaker than your normal self, and our physical therapist worked with you during your stay here. It looks like you have been getting better every day. Please watch for confusion, agitation, new hallucinations, or worsening memory. These may indicate persistent or recurrent delirium, which is common after COVID-19 in older adults. Support orientation and safety: Use clocks, calendars, and familiar objects to help maintain orientation. Ensure the environment is safe and free of hazards. Encourage regular routines and gentle reminders about time, place, and people. Nonpharmacologic strategies are first-line: Promote good sleep hygiene, regular physical activity, hydration, and nutrition. Minimize unnecessary medications, especially those with anticholinergic or sedative effects, as these can worsen confusion. Caregiver involvement: Family and caregivers should be actively involved in daily care, provide reassurance, and help with communication. Social interaction and emotional support are critical to reduce anxiety and agitation. Monitor for COVID-19 complications: Watch for new or worsening respiratory symptoms, fever, or other signs of infection. Seek medical attention promptly if these occur. Contact healthcare providers immediately for: - Sudden worsening of confusion or agitation - New weakness, difficulty speaking, or focal neurological symptoms - Fever, shortness of breath, chest pain, or other acute medical concerns Please continue to ensure adequate hydration and nutrition. Please encourage gentle physical activity as tolerated. Please continue follow-up and rehabilitation. Schedule follow-up with primary care and memory clinic for ongoing assessment of cognitive and functional status. Print Language: Burkinan"
--- NOTE | 2025-03-11 08:01 | PROVIDER PROGRESS NOTE ---
Subjective Prog Note Date Prog Note Date: 03/11/25 Prog Note Time: 08:01 Subjective Subjective: No acute events overnight. Patient remains clinically stable. Med ready pending discharge to swing bed. Current Medications Current Medications Current Medications: Current Medications Generic Name Dose Route Start Last Admin Trade Name Freq PRN Reason Stop Dose Admin Acetaminophen 650 mg 03/04/25 02:32 03/09/25 20:21 Acetaminophen 325 Mg Tablet PO 650 mg Q4HR PRN Administration Pain 1 to 4, or Fever Hydrocodone Bitart/Acetaminophen 1 tab 03/04/25 02:32 Hydrocod/Acetam 5/325 Mg Tablet PO Q4HR PRN Pain 5 to 7 Atorvastatin Calcium 80 mg 03/05/25 21:00 03/10/25 21:07 Atorvastatin 40 Mg Tablet PO 80 mg QPM DESMOND Administration Calcium Carbonate/Glycine 500 mg 03/07/25 10:00 03/10/25 08:36 Calcium Carbonate Chew 500 Mg Tablet PO 500 mg DAILY DESMOND Administration Cholecalciferol 50 mcg 03/07/25 10:00 03/10/25 08:36 Cholecalciferol 25 Mcg Tablet PO 50 mcg DAILY DESMOND Administration Diclofenac Sodium 2 gm 03/05/25 17:37 03/10/25 21:06 Diclofenac Sodium 1% Gel 50 Gm Tube TOP 2 gm QID PRN Administration Mild Pain (Level 1-3) Duloxetine HCl 30 mg 03/05/25 21:00 03/10/25 21:07 Duloxetine 30 Mg Capsule PO 30 mg BID DESMOND Administration Enoxaparin Sodium 40 mg 03/09/25 09:00 03/10/25 08:35 Enoxaparin 40 Mg/0.4 Ml Syringe SUBQ 40 mg DAILY DESMOND Administration Acetaminophen 1,000 mg in 100 mls @ 400 mls/hr 03/05/25 20:37 Acetaminophen IV Q6HR PRN Moderate Pain (Level 4-6) Levothyroxine Sodium 88 mcg 03/05/25 09:30 03/11/25 06:32 Levothyroxine 88 Mcg Tablet PO 88 mcg QDAC DESMOND Administration Lidocaine 1 patch 03/06/25 09:00 03/10/25 08:36 Lidocaine Patch 4% TOP 1 patch DAILY DESMOND Administration Melatonin 3 mg 03/06/25 21:00 03/10/25 21:07 Melatonin 3 Mg Tablet PO 3 mg QPM DESMOND Administration Pantoprazole Sodium 40 mg 03/05/25 16:00 03/11/25 06:32 Pantoprazole 40 Mg Tablet PO 40 mg BIDAC DESMOND Administration Polyethylene Glycol 17 gm 03/06/25 09:00 03/10/25 08:35 Polyethylene Glycol 3350 17 Gm Packet PO 17 gm DAILY DESMOND Administration Pramipexole Dihydrochloride 0.5 mg 03/07/25 21:00 03/10/25 21:07 Pramipexole 0.25 Mg Tablet PO 0.5 mg QPM DESMOND Administration Prednisone 5 mg 03/05/25 14:00 03/10/25 08:35 Prednisone 5 Mg Tablet PO 5 mg DAILY DESMOND Administration Multivit/Folic Acid/Iron 1 tab 03/07/25 10:00 03/10/25 08:36 Vitamin Tablet PO 1 tab DAILYWM DESMOND Administration Sodium Chloride 10 ml 03/04/25 02:32 03/08/25 20:44 Sodium Chloride Flush 0.9% 10 Ml Syringe IVP 10 ml PRN PRN Administration NEEDED PER PROVIDER ORDERS Sodium Chloride 10 ml 03/04/25 09:00 03/11/25 05:16 Sodium Chloride Flush 0.9% 10 Ml Syringe IVP 10 ml 0100,[id number],1700 DESMOND Administration Objective Vital Signs/Intake & Output Vital Signs: Vital Signs x48h Temp Pulse Resp BP Pulse Ox 03/11/25 00:47 36.5 C 60 18 163/71 H 95 Intake & Output: Intake & Output 03/08/25 03/09/25 03/10/25 03/11/25 23:59 23:59 23:59 23:59 Intake Total 540 / 540 1018 / 1018 320 / 320 Output Total 260 / 260 350 / 350 550 / 550 Balance 280 / 280 668 / 668 -230 / -230 Lab Results 03/09/25 04:56 03/09/25 04:56 Assessment/Plan Problem List (1) Encephalopathy: Qualifiers: Encephalopathy type: unspecified encephalopathy Qualified Code(s): G 93.40 - Encephalopathy, unspecified (2) COVID-19: (3) Hypokalemia: (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
[2025-03-11 08:31] VITALS: BP 151/92; TEMP 97.5; O2SAT 97
== END 2025-03-11 14:49 | disposition swing bed (61) | DRG 70 ==
LOC: ED 19:25 → ICU 19:25 → MS3 03-09 15:41
PROVIDERS: ADMIT Family Medicine; ATTEND Family Medicine